=== PATIENT | male | born 1960 | race Caucasian/White ===

== ENCOUNTER 2016-11-15 09:54 | Emergency (ER) | payer MEDICARE ==
[~2016-11-15 09:54] MED LIST: /CELE20CA PO; /WARF25TA OR; IBUPPOW25 PO; LOVA10TA PO; LYRI75CA PO; PERCOCET OR; TYLE325T5 PO
[2016-11-15] MEDS ORDERED: KETOROLAC 30 MG/ML VIAL (J1885) As Ordered ONE (11:08)
[2016-11-15 11:27] LABS: BASO % 0.6 % (0.0-1.0); EOS # 0.1 K/mm3 (0.0-0.50); EOS % 1.3 % (0.0-3.0); LARGE UNSTAINED CELL # 0.1 K/mm3 (0.0-0.4); LARGE UNSTAINED CELL % 1.5 % (0.0-4.0); LYMPH # 2.3 K/mm3 (1.5-4.5); MEAN CORPUSCULAR HEMOGLOBIN 30.7 pg (27.0-33.0); MEAN CORPUSCULAR HGB CONC 34.1 g/dl (32.0-36.5); MEAN CORPUSCULAR VOLUME 90.2 fl (80.0-96.0); MONO # 0.4 K/mm3 (0.0-0.8); MONO % 4.9 % (0.0-5.0); NEUTROPHILS # 4.6 K/mm3 (1.8-7.7); NEUTROPHILS % 60.7 % (36.0-66.0); PLATELET COUNT, AUTOMATED 195 k/mm3 (150-450); WHITE BLOOD COUNT 7.5 K/mm3 (4.0-10.0)
[2016-11-15 11:57] LABS: ALBUMIN/GLOBULIN RATIO 1.03 (1.00-1.93); ALKALINE PHOSPHATASE 65 U/L (45-117); ALT/SGPT 35 U/L (12-78); ANION GAP 5 MEQ/L (8-16); AST/SGOT 16 U/L (15-37); BILIRUBIN,DIRECT 0.1 MG/DL (0.0-0.2); BILIRUBIN,TOTAL 0.4 MG/DL (0.2-1.0); BLOOD UREA NITROGEN 13 MG/DL (7-18); CARBON DIOXIDE LEVEL 30 MEQ/L (21-32); CHLORIDE LEVEL 106 MEQ/L (98-107); CREATININE FOR GFR 1.13 MG/DL (0.70-1.30); GLOMERULAR FILTRATION RATE > 60.0 (>56); GLUCOSE, FASTING 80 MG/DL (70-105); POTASSIUM SERUM 4.3 MEQ/L (3.5-5.1); SODIUM LEVEL 141 MEQ/L (136-145); TOTAL PROTEIN 7.9 GM/DL (6.4-8.2)
--- NOTE | 2016-11-15 12:22 | REP ---
CT STUDY OF THE ABDOMEN PELVIS WITHOUT IV OR ORAL CONTRAST: Renal stone protocol. HISTORY: Right flank pain. Comparison CT scan is from June 08, 2016. 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 The left hip is replaced. FINDINGS: The lung bases are clear. The liver and the spleen are normal in size homogeneous in texture. Gallbladder and pancreas have a normal appearance. No adrenal lesion is seen on either side. Small and large intestinal bowel loops are normal in the abdomen and pelvis. There is some sigmoid colon diverticulosis. A normal appendix is seen posterior to the cecum. Some vascular calcification is noted. The patient is status post inguinal hernia repair apparently on the left. There is no evidence of hydronephrosis in either kidney. No intrarenal calculus is seen. No ureteral calculus is observed. Seminal vesicles and prostate are unremarkable. No abdominal mass or adenopathy is seen. Normal caliber aorta is noted. No bony destructive lesions seen. IMPRESSION: No urinary tract calculus or hydronephrosis seen. Normal appendix seen. Left colonic diverticulosis without CT evidence of diverticulitis. Status post left inguinal herniorrhaphy and left hip replacement. Signed by Jarrett Bailey MD 11/15/2016 06:35 P
--- NOTE | 2016-11-15 12:57 | EDDOCDS ---
Physician Documentation [facility] Name: Jeremiah Ruby Age: 56 yrs Sex: Male : 1960 Arrival Date: 11/15/2016 Time: 09:54 Bed PR Private MD: Michelle Aranda D Disposition: 11/15/16 12:46 Discharged to Home/Self Care. Impression: Abdominal tenderness - RIGHT FLANK. - Condition is Stable. - Discharge Instructions: Flank Pain, [id number]. - Prescriptions for Robaxin- 750 750 mg Oral Tablet - take 1 tablet by ORAL route every 6 hours As needed; 40 tablet. etodolac 200 mg Oral Capsule - take 1 capsule by ORAL route 3 times per day; 30 capsule. - Medication Reconciliation, Local Pharmacy Hours form. - Follow up: Michelle Aranda; When: Call to arrange an appointment; Reason: Further diagnostic work-up, Recheck today's complaints, Continuance of care. - Problem is new. - Symptoms are unchanged. Historical: - Allergies: no known allergies; - Home Meds: 1. allopurinol 300 mg Oral tab 1 tab once daily - PMHx: edema; Gout; Hernia; neuropathy; - PSHx: Hip Arthroplasty, Left; Hernia repair- Left inguinal; cyst removal neck; hydrocele repair; - Social history: Smoking status: Patient uses tobacco products, heavy tobacco smoker. No barriers to communication noted, The patient speaks fluent Greenlandic, Speaks appropriately for age. - Family history: Not pertinent. - : The pt / caregiver states he / she is not on anticoagulants. Home medication list is obtained from the patient. - Exposure Risk Screening:: None identified. Vital Signs: 11/15 09:56 BP 155 / 84; Pulse 60; Resp 18; Temp 96.6; Pulse Ox 99% ; Weight 87.09 kg / 192 lbs; elp Height 5 ft. 9 in. (175.26 cm); Pain 8/10; 12:54 BP 127 / 67; Pulse 56; Resp 18; Temp 97.1; Pulse Ox 98% on R/A; Pain 8/10; ttb 09:56 Body Mass Index 28.35 (87.09 kg, 175.26 cm) elp MDM: 11:05 ketorolac 30 mg IM once ordered. btw 11:05 Basic Metabolic Profile Ordered. EDMS 11:05 CBC with Diff Ordered. EDMS 11:05 Liver Profile Ordered. EDMS 11:05 Urinalysis Ordered. EDMS 11:05 Urine Culture Ordered. EDMS 11:06 CT ABD & PELVIS: No Contrast Ordered. EDMS 11:06 NOTHING BY MOUTH+DIET ordered. EDMS 11:07 Financial registration complete. lg 11:08 [facility] Payment Agreement was scanned into [employer] and attached to record. lg 12:03 Basic Metabolic Profile Reviewed. btw 12:03 CBC with Diff Reviewed. btw 12:03 Liver Profile Reviewed. btw 12:03 Urinalysis Reviewed. btw Administered Medications: 11:10 Drug: ketorolac 30 mg [ketorolac 30 mg/mL (1 mL) injection solution (1 mL)] Route: IM; mcp Site: left deltoid; 12:56 Follow up: Response: No Adverse Reaction; No significant change.; Pain is decreased ttb Signatures: Dispatcher [employer] EDChristo Youssef Reg Reg lg Joby Ordaz RN RN mlb1 Ricky Jefferson PA PA btw Rosanna Mark RN RN ttb Holly Muhammad RN [facility] The chart was reviewed and I authenticate all verbal orders and agree with the evaluation and treatment provided.Attachments: 11:08 [facility] Payment Agreement lg MTDD
--- NOTE | 2016-11-15 12:57 | EDDOCDS ---
Nurse's Notes [facility] Name: Jeremiah Ruby Age: 56 yrs Sex: Male : 1960 Arrival Date: 11/15/2016 Time: 09:54 Bed PR Private MD: Michelle Aranda D Diagnosis: Abdominal tenderness-RIGHT FLANK Presentation: 11/15 10:00 Presenting complaint: Patient states: Right flank pain began 12 days ago. Acute mlb1 neurological deficits are not present. Mechanism of Injury: No Mechanism of Injury. Adult Sepsis Screening: The patient does not have new or worsening altered mentation. Patient's respiratory rate is less than 22. Systolic blood pressure is greater than 100. Patient has a qSOFA score of 0- Negative Sepsis Screen. Suicide/Homicide risk assessment- the patient denies having any suicidal and/or homicidal ideations and does not present with any other emotional, behavioral or mental health complaints. 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 Transition of care: patient was not received from another setting of care. 10:00 Acuity: JUAN Level 3 mlb1 10:00 Method Of Arrival: Walkin/Carried/Asstd mlb1 Triage Assessment: 10:01 General: Appears uncomfortable, Behavior is appropriate for age, cooperative. Pain: mlb1 Location: right flank Pain currently is 9 out of 10 on a pain scale. HIV screening NA for this visit Offered previously. Historical: - Allergies: no known allergies; - Home Meds: 1. allopurinol 300 mg Oral tab 1 tab once daily - PMHx: edema; Gout; Hernia; neuropathy; - PSHx: Hip Arthroplasty, Left; Hernia repair- Left inguinal; cyst removal neck; hydrocele repair; - Social history: Smoking status: Patient uses tobacco products, heavy tobacco smoker. No barriers to communication noted, The patient speaks fluent [place] Islander, Speaks appropriately for age. - Family history: Not pertinent. - : The pt / caregiver states he / she is not on anticoagulants. Home medication list is obtained from the patient. - Exposure Risk Screening:: None identified. Screenin:54 Screening information is obtained from the patient. Fall risk: No risks identified. ttb Assistance ADL's: requires no assistance with activities of daily living. Abuse/DV Screen: The patient / caregiver reports he/she is: not in a situation that causes fear, pain or injury. Nutritional screening: No deficits noted. Advance Directives: Currently, there is no health care proxy. home support is adequate. Assessment: 12:54 General: Appears in no apparent distress, well nourished, well groomed, Behavior is ttb appropriate for age, cooperative, pleasant. Pain: Location: right flank Pain currently is 8 out of 10 on a pain scale. Neurological: Level of Consciousness is awake, alert. Cardiovascular: Chest pain is denied. Respiratory: No deficits noted. GI: Denies nausea, vomiting. Derm: Skin is normal. Musculoskeletal: Range of motion intact in all extremities. Injury Description: No known injury. Vital Signs: 09:56 BP 155 / 84; Pulse 60; Resp 18; Temp 96.6; Pulse Ox 99% ; Weight 87.09 kg; Height 5 ft. elp 9 in. (175.26 cm); Pain 8/10; 12:54 BP 127 / 67; Pulse 56; Resp 18; Temp 97.1; Pulse Ox 98% on R/A; Pain 8/10; ttb 09:56 Body Mass Index 28.35 (87.09 kg, 175.26 cm) el Vitals: 09:56 Log In Time: November 15, 2016 at 09:54. [facility] ED Course: 09:55 Patient visited by Arina Hodgson PCA. elp 09:55 Patient moved to Waiting elp 09:56 Michelle Aranda is Private Physician. elp 09:56 Patient visited by Arina Hodgson PCA. elp 09:56 Patient moved to Pre RCE elp 10:00 Patient visited by Joby Ordaz, RN. mlb1 10:00 Triage Initiated mlb1 10:02 Patient visited by Joby Ordaz, JEREMIAS. mlb1 10:36 Patient moved to Triage 2 kc3 10:56 [facility]. btw 10:56 Lashaun Monte MD is Attending Physician. btw 10:56 Patient visited by Ricky Jefferson PA. btw 11:08 [facility] Payment Agreement was scanned into [employer] and attached to record. lg 11:15 Patient moved to TR3 mcp 11:17 Basic Metabolic Profile Sent. cmb 11:17 CBC with Diff Sent. cmb 11:17 Liver Profile Sent. cmb 11:17 Urinalysis Sent. cmb 11:17 Urine Culture Sent. cmb 12:19 Patient moved to ttb 12:43 CT ABD & PELVIS: No Contrast Returned. EDMS 12:45 Michelle Aranda is Referral Physician. btw 12:54 The patient / caregiver is instructed regarding the plan of care and ED course. Patient ttb has correct armband on for positive identification. 12:54 No IV's were initiated during this patient's visit. No procedures done that require ttb assistance. Labs drawn. (by ED staff). Urine collected. Clean catch specimen. Administered Medications: 11:10 Drug: ketorolac 30 mg [ketorolac 30 mg/mL (1 mL) injection solution (1 mL)] Route: IM; mcp Site: left deltoid; 12:56 Follow up: Response: No Adverse Reaction; No significant change.; Pain is decreased ttb Order Results: Lab Order: Basic Metabolic Profile; SPEC'M 11/15/16 11:13 Test: GLUCOSE, FASTING; Value: 80; Range: 70-105; Units: MG/DL; Status: F Test: BLOOD UREA NITROGEN; Value: 13; Range: 7-18; Units: MG/DL; Status: F Test: CREATININE FOR GFR; Value: 1.13; Range: 0.70-1.30; Units: MG/DL; Status: F Test: GLOMERULAR FILTRATION RATE; Value: > 60.0; Range: >56; Status: F Test: SODIUM LEVEL; Value: 141; Range: 136-145; Units: MEQ/L; Status: F Test: POTASSIUM SERUM; Value: 4.3; Range: 3.5-5.1; Units: MEQ/L; Status: F Test: CHLORIDE LEVEL; Value: 106; Range: 98-107; Units: MEQ/L; Status: F Test: CARBON DIOXIDE LEVEL; Value: 30; Range: 21-32; Units: MEQ/L; Status: F Test: ANION GAP; Value: 5; Range: 8-16; Abnormal: Below low normal; Units: MEQ/L; Status: F Test: CALCIUM LEVEL; Value: 9.0; Range: 8.5-10.1; Units: MG/DL; Status: F Test Note: ; Units are mL/min/1.73 m2 Chronic Kidney Disease Staging per NKF: Stage I & II GFR >=60 Normal to Mildly Decreased Stage III GFR 30-59 Moderately Decreased Stage IV GFR 15-29 Severely Decreased Stage V GFR <15 Very Little GFR Left ESRD GFR <15 on CUSTOMER ACCOUNT SPECIALIST Lab Order: CBC with Diff; SPEC'M 11/15/16 11:13 Test: WHITE BLOOD COUNT; Value: 7.5; Range: 4.0-10.0; Units: K/mm3; Status: F Test: RED BLOOD COUNT; Value: 5.10; Range: 4.30-6.10; Units: M/mm3; Status: F Test: HEMOGLOBIN; Value: 15.7; Range: 14.0-18.0; Units: g/dl; Status: F Test: HEMATOCRIT; Value: 46.1; Range: 42.0-52.0; Units: %; Status: F Test: MEAN CORPUSCULAR VOLUME; Value: 90.2; Range: 80.0-96.0; Units: fl; Status: F Test: MEAN CORPUSCULAR HEMOGLOBIN; Value: 30.7; Range: 27.0-33.0; Units: pg; Status: F Test: MEAN CORPUSCULAR HGB CONC; Value: 34.1; Range: 32.0-36.5; Units: g/dl; Status: F Test: RED CELL DISTRIBUTION WIDTH; Value: 13.0; Range: 11.5-14.5; Units: %; Status: F Test: PLATELET COUNT, AUTOMATED; Value: 195; Range: 150-450; Units: k/mm3; Status: F Test: NEUTROPHILS %; Value: 60.7; Range: 36.0-66.0; Units: %; Status: F Test: LYMPH %; Value: 31.0; Range: 24.0-44.0; Units: %; Status: F Test: MONO %; Value: 4.9; Range: 0.0-5.0; Units: %; Status: F Test: EOS %; Value: 1.3; Range: 0.0-3.0; Units: %; Status: F Test: BASO %; Value: 0.6; Range: 0.0-1.0; Units: %; Status: F Test: LARGE UNSTAINED CELL %; Value: 1.5; Range: 0.0-4.0; Units: %; Status: F Test: NEUTROPHILS #; Value: 4.6; Range: 1.8-7.7; Units: K/mm3; Status: F Test: LYMPH #; Value: 2.3; Range: 1.5-4.5; Units: K/mm3; Status: F Test: MONO #; Value: 0.4; Range: 0.0-0.8; Units: K/mm3; Status: F Test: EOS #; Value: 0.1; Range: 0.0-0.50; Units: K/mm3; Status: F Test: BASO #; Value: 0.0; Range: 0.0-0.2; Units: K/mm3; Status: F Test: LARGE UNSTAINED CELL #; Value: 0.1; Range: 0.0-0.4; Units: K/mm3; Status: F Lab Order: Liver Profile; SPEC'M 11/15/16 11:13 Test: AST/SGOT; Value: 16; Range: 15-37; Units: U/L; Status: F Test: ALT/SGPT; Value: 35; Range: 12-78; Units: U/L; Status: F Test: ALKALINE PHOSPHATASE; Value: 65; Range: 45-117; Units: U/L; Status: F Test: BILIRUBIN,TOTAL; Value: 0.4; Range: 0.2-1.0; Units: MG/DL; Status: F Test: BILIRUBIN,DIRECT; Value: 0.1; Range: 0.0-0.2; Units: MG/DL; Status: F Test: TOTAL PROTEIN; Value: 7.9; Range: 6.4-8.2; Units: GM/DL; Status: F Test: ALBUMIN; Value: 4.0; Range: 3.2-5.2; Units: GM/DL; Status: F Test: ALBUMIN/GLOBULIN RATIO; Value: 1.03; Range: 1.00-1.93; Status: F Lab Order: Urinalysis; SPEC'M 11/15/16 11:13 Test: APPEARANCE, URINE; Value: CLEAR; Range: CLEAR; Status: F Test: COLOR, URINE; Value: STRAW; Range: YELLOW; Status: F Test: PH,URINE; Value: 5.0; Range: 5.0-9.0; Units: UNITS; Status: F Test: SPECIFIC GRAVITY URINE AUTO; Value: 1.004; Range: 1.002-1.035; Status: F Test: PROTEIN, URINE AUTO; Value: NEGATIVE; Range: NEGATIVE; Units: mg/dL; Status: F Test: GLUCOSE, URINE (UA) AUTO; Value: NEGATIVE; Range: NEGATIVE; Units: mg/dL; Status: F Test: KETONE, URINE AUTO; Value: NEGATIVE; Range: NEGATIVE; Units: mg/dL; Status: F Test: UROBILINOGEN, URINE AUTO; Value: 0.2; Range: 0.0-2.0; Units: mg/dL; Status: F Test: BILIRUBIN, URINE AUTO; Value: NEGATIVE; Range: NEGATIVE; Status: F Test: NITRITE, URINE AUTO; Value: NEGATIVE; Range: NEGATIVE; Status: F Test: LEUKOCYTE ESTERASE, URINE AUTO; Value: NEGATIVE; Range: NEGATIVE; Status: F Test: BLOOD, URINE BLOOD; Value: NEGATIVE; Range: NEGATIVE; Status: F Test: WBC, URINE AUTO; Value: 0; Range: 0-3; Units: /HPF; Status: F Test: RBC, URINE AUTO; Value: 0; Range: 0-3; Units: /HPF; Status: F Test: BACTERIA, URINE AUTO; Value: NEGATIVE; Range: NEGATIVE; Status: F Test: SQUAMOUS EPITHELIAL CELL UR AU; Value: 0; Range: 0-6; Units: /HPF; Status: F Test: HYALINE CAST, URINE AUTO; Value: 0; Range: 0-1; Units: /LPF; Status: F Radiology Order: CT ABD & PELVIS: No Contrast Test: CT ABD & PELVIS: No Contrast REASON FOR EXAMINATION: RIGHT flank pain; CT STUDY OF THE ABDOMEN PELVIS WITHOUT IV OR ORAL CONTRAST: Renal stone; protocol.; ; HISTORY: Right flank pain.; ; Comparison CT scan is from June 08, 2016.; ; FINDINGS: Preliminary civil service clerk radiograph demonstrates an unremarkable bowel gas; pattern. The left hip is replaced.; ; FINDINGS: The lung bases are clear. The liver and the spleen are normal in size; homogeneous in texture. Gallbladder and pancreas have a normal appearance. No; adrenal lesion is seen on either side. Small and large intestinal bowel loops; are normal in the abdomen and pelvis. There is some sigmoid colon; diverticulosis. A normal appendix is seen posterior to the cecum. Some vascular; calcification is noted. The patient is status post inguinal hernia repair; apparently on the left.; ; There is no evidence of hydronephrosis in either kidney. No intrarenal calculus; is seen. No ureteral calculus is observed. Seminal vesicles and prostate are; unremarkable. No abdominal mass or adenopathy is seen. Normal caliber aorta is; noted. No bony destructive lesions seen.; ; IMPRESSION:; No urinary tract calculus or hydronephrosis seen. Normal appendix seen. Left; colonic diverticulosis without CT evidence of diverticulitis. Status post left; inguinal herniorrhaphy and left hip replacement.; ; ; ; Unreviewed; Outcome: 12:46 Discharge ordered by Provider. btw 12:54 Discharge Assessment: Patient awake, alert and oriented x 3. No cognitive and/or ttb functional deficits noted. Patient verbalized understanding of disposition instructions. Patient awake and alert. patient administered narcotics - no. The following High Risk Discharge criteria are identified: None. Discharged to home ambulatory. Condition: good Condition: stable Condition: improved. Discharge instructions given to patient, Instructed on discharge instructions, follow up and referral plans. medication usage, Demonstrated understanding of instructions, medications, no heavy lifting, strenuous exercise Pt was receptive of discharge instructions/ teaching. Prescriptions given X 2. CT Study completed. Property :Personal belongings accompany Pt. 12:56 Patient left the ED. ttb Signatures: Dispatcher [employer] EDMS Holly Muhammad RN RN Christo Gardner, Raffy Reg Joby Villagomez RN RN mlb1 Ricky Jefferson PA PA btw Krysten Woodson cmRosanna Villavicencio RN RN ttb Arina Hodgson, SALES DESIGNER SALES DESIGNER Lizy Fernandez,RN RN kc3 MTDD
--- NOTE | 2016-11-17 13:58 | EDDOCDS ---
Physician Documentation [facility] Name: Jeremiah Ruby Age: 56 yrs Sex: Male : 1960 Arrival Date: 11/15/2016 Time: 09:54 Bed PR Private MD: Michelle Aranda D Disposition: 11/15/16 12:46 Discharged to Home/Self Care. Impression: Abdominal tenderness - RIGHT FLANK. - Condition is Stable. - Discharge Instructions: Flank Pain, [id number]. - Prescriptions for Robaxin- 750 750 mg Oral Tablet - take 1 tablet by ORAL route every 6 hours As needed; 40 tablet. etodolac 200 mg Oral Capsule - take 1 capsule by ORAL route 3 times per day; 30 capsule. - Medication Reconciliation, Local Pharmacy Hours form. - Follow up: Michelle Aranda; When: Call to arrange an appointment; Reason: Further diagnostic work-up, Recheck today's complaints, Continuance of care. - Problem is new. - Symptoms are unchanged. Historical: - Allergies: no known allergies; - Home Meds: 1. allopurinol 300 mg Oral tab 1 tab once daily - PMHx: edema; Gout; Hernia; neuropathy; - PSHx: Hip Arthroplasty, Left; Hernia repair- Left inguinal; cyst removal neck; hydrocele repair; - Social history: Smoking status: Patient uses tobacco products, heavy tobacco smoker. No barriers to communication noted, The patient speaks fluent [place], Speaks appropriately for age. - Family history: Not pertinent. - : The pt / caregiver states he / she is not on anticoagulants. Home medication list is obtained from the patient. - Exposure Risk Screening:: None identified. Vital Signs: 11/15 09:56 BP 155 / 84; Pulse 60; Resp 18; Temp 96.6; Pulse Ox 99% ; Weight 87.09 kg / 192 lbs; elp Height 5 ft. 9 in. (175.26 cm); Pain 8/10; 12:54 BP 127 / 67; Pulse 56; Resp 18; Temp 97.1; Pulse Ox 98% on R/A; Pain 8/10; ttb 09:56 Body Mass Index 28.35 (87.09 kg, 175.26 cm) elp MDM: 11:05 ketorolac 30 mg IM once ordered. btw 11:05 Basic Metabolic Profile Ordered. EDMS 11:05 CBC with Diff Ordered. EDMS 11:05 Liver Profile Ordered. EDMS 11:05 Urinalysis Ordered. EDMS 11:05 Urine Culture Ordered. EDMS 11:06 CT ABD & PELVIS: No Contrast Ordered. EDMS 11:06 NOTHING BY MOUTH+DIET ordered. EDMS 11:07 Financial registration complete. lg 11:08 [facility] Payment Agreement was scanned into [employer] and attached to record. lg 12:03 Basic Metabolic Profile Reviewed. btw 12:03 CBC with Diff Reviewed. btw 12:03 Liver Profile Reviewed. btw 12:03 Urinalysis Reviewed. btw 14:07 T-Sheet-- Draft Copy was scanned into [employer] and attached to record. gb Administered Medications: 11:10 Drug: ketorolac 30 mg [ketorolac 30 mg/mL (1 mL) injection solution (1 mL)] Route: IM; mcp Site: left deltoid; 12:56 Follow up: Response: No Adverse Reaction; No significant change.; Pain is decreased ttb Signatures: Dispatcher [employer] EDMS Alessandra Ryan, Reg Reg gb Christo Rg, Reg Reg lg Joby Ordaz RN RN mlb1 Ricky Jefferson PA PA btw Rosanna Mark RN RN ttb Holly uMhammad RN [facility] The chart was reviewed and I authenticate all verbal orders and agree with the evaluation and treatment provided.Attachments: 11:08 [facility] Payment Agreement lg 14:07 T-Sheet-- Draft Copy gb Chart Complete MTDD
--- NOTE | 2016-11-17 13:58 | EDDOCDS ---
Physician Documentation [facility] Name: Jeremiah Ruby Age: 56 yrs Sex: Male : 1960 Arrival Date: 11/15/2016 Time: 09:54 Bed PR Private MD: Michelle Aranda D Disposition: 11/15/16 12:46 Discharged to Home/Self Care. Impression: Abdominal tenderness - RIGHT FLANK. - Condition is Stable. - Discharge Instructions: Flank Pain, [id number]. - Prescriptions for Robaxin- 750 750 mg Oral Tablet - take 1 tablet by ORAL route every 6 hours As needed; 40 tablet. etodolac 200 mg Oral Capsule - take 1 capsule by ORAL route 3 times per day; 30 capsule. - Medication Reconciliation, Local Pharmacy Hours form. - Follow up: Michelle Aranda; When: Call to arrange an appointment; Reason: Further diagnostic work-up, Recheck today's complaints, Continuance of care. - Problem is new. - Symptoms are unchanged. Historical: - Allergies: no known allergies; - Home Meds: 1. allopurinol 300 mg Oral tab 1 tab once daily - PMHx: edema; Gout; Hernia; neuropathy; - PSHx: Hip Arthroplasty, Left; Hernia repair- Left inguinal; cyst removal neck; hydrocele repair; - Social history: Smoking status: Patient uses tobacco products, heavy tobacco smoker. No barriers to communication noted, The patient speaks fluent Arabic, Speaks appropriately for age. - Family history: Not pertinent. - : The pt / caregiver states he / she is not on anticoagulants. Home medication list is obtained from the patient. - Exposure Risk Screening:: None identified. Vital Signs: 11/15 09:56 BP 155 / 84; Pulse 60; Resp 18; Temp 96.6; Pulse Ox 99% ; Weight 87.09 kg / 192 lbs; elp Height 5 ft. 9 in. (175.26 cm); Pain 8/10; 12:54 BP 127 / 67; Pulse 56; Resp 18; Temp 97.1; Pulse Ox 98% on R/A; Pain 8/10; ttb 09:56 Body Mass Index 28.35 (87.09 kg, 175.26 cm) elp MDM: 11:05 ketorolac 30 mg IM once ordered. btw 11:05 Basic Metabolic Profile Ordered. EDMS 11:05 CBC with Diff Ordered. EDMS 11:05 Liver Profile Ordered. EDMS 11:05 Urinalysis Ordered. EDMS 11:05 Urine Culture Ordered. EDMS 11:06 CT ABD & PELVIS: No Contrast Ordered. EDMS 11:06 NOTHING BY MOUTH+DIET ordered. EDMS 11:07 Financial registration complete. lg 11:08 [facility] Payment Agreement was scanned into [employer] and attached to record. lg 12:03 Basic Metabolic Profile Reviewed. btw 12:03 CBC with Diff Reviewed. btw 12:03 Liver Profile Reviewed. btw 12:03 Urinalysis Reviewed. btw 14:07 T-Sheet-- Draft Copy was scanned into [employer] and attached to record. gb Administered Medications: 11:10 Drug: ketorolac 30 mg [ketorolac 30 mg/mL (1 mL) injection solution (1 mL)] Route: IM; mcp Site: left deltoid; 12:56 Follow up: Response: No Adverse Reaction; No significant change.; Pain is decreased ttb Signatures: Dispatcher [employer] EDMS Alessandra Ryan, Reg Reg gb Christo Rg, Reg Reg lg Joby Ordaz RN RN mlb1 Ricky Jefferson PA PA btw Rosanna Mark RN RN ttb Holly Muhammad RN [facility] The chart was reviewed and I authenticate all verbal orders and agree with the evaluation and treatment provided.Attachments: 11:08 [facility] Payment Agreement lg 14:07 T-Sheet-- Draft Copy gb Chart Complete MTDD
--- NOTE | 2016-11-17 13:58 | EDDOCDS ---
Nurse's Notes [facility] Name: Jeremiah Ruby Age: 56 yrs Sex: Male : 1960 Arrival Date: 11/15/2016 Time: 09:54 Bed PR Private MD: Michelle Aranda D Diagnosis: Abdominal tenderness-RIGHT FLANK Presentation: 11/15 10:00 Presenting complaint: Patient states: Right flank pain began 12 days ago. Acute mlb1 neurological deficits are not present. Mechanism of Injury: No Mechanism of Injury. Adult Sepsis Screening: The patient does not have new or worsening altered mentation. Patient's respiratory rate is less than 22. Systolic blood pressure is greater than 100. Patient has a qSOFA score of 0- Negative Sepsis Screen. Suicide/Homicide risk assessment- the patient denies having any suicidal and/or homicidal ideations and does not present with any other emotional, behavioral or mental health complaints. Status: Patient is not a donor services technician or dependent. Transition of care: patient was not received from another setting of care. 10:00 Acuity: JUAN Level 3 mlb1 10:00 Method Of Arrival: Walkin/Carried/Asstd mlb1 Triage Assessment: 10:01 General: Appears uncomfortable, Behavior is appropriate for age, cooperative. Pain: mlb1 Location: right flank Pain currently is 9 out of 10 on a pain scale. HIV screening NA for this visit Offered previously. Historical: - Allergies: no known allergies; - Home Meds: 1. allopurinol 300 mg Oral tab 1 tab once daily - PMHx: edema; Gout; Hernia; neuropathy; - PSHx: Hip Arthroplasty, Left; Hernia repair- Left inguinal; cyst removal neck; hydrocele repair; - Social history: Smoking status: Patient uses tobacco products, heavy tobacco smoker. No barriers to communication noted, The patient speaks fluent Eritrean, Speaks appropriately for age. - Family history: Not pertinent. - : The pt / caregiver states he / she is not on anticoagulants. Home medication list is obtained from the patient. - Exposure Risk Screening:: None identified. Screenin:54 Screening information is obtained from the patient. Fall risk: No risks identified. ttb Assistance ADL's: requires no assistance with activities of daily living. Abuse/DV Screen: The patient / caregiver reports he/she is: not in a situation that causes fear, pain or injury. Nutritional screening: No deficits noted. Advance Directives: Currently, there is no health care proxy. home support is adequate. Assessment: 12:54 General: Appears in no apparent distress, well nourished, well groomed, Behavior is ttb appropriate for age, cooperative, pleasant. Pain: Location: right flank Pain currently is 8 out of 10 on a pain scale. Neurological: Level of Consciousness is awake, alert. Cardiovascular: Chest pain is denied. Respiratory: No deficits noted. GI: Denies nausea, vomiting. Derm: Skin is normal. Musculoskeletal: Range of motion intact in all extremities. Injury Description: No known injury. Vital Signs: 09:56 BP 155 / 84; Pulse 60; Resp 18; Temp 96.6; Pulse Ox 99% ; Weight 87.09 kg; Height 5 ft. elp 9 in. (175.26 cm); Pain 8/10; 12:54 BP 127 / 67; Pulse 56; Resp 18; Temp 97.1; Pulse Ox 98% on R/A; Pain 8/10; ttb 09:56 Body Mass Index 28.35 (87.09 kg, 175.26 cm) el Vitals: 09:56 Log In Time: November 15, 2016 at 09:54. [facility] ED Course: 09:55 Patient visited by Arina Hodgson PCA. elp 09:55 Patient moved to Waiting elp 09:56 Michelle Aranda is Private Physician. elp 09:56 Patient visited by Arina Hodgson PCA. elp 09:56 Patient moved to Pre RCE elp 10:00 Patient visited by Joby Ordaz, RN. mlb1 10:00 Triage Initiated mlb1 10:02 Patient visited by Joby Ordaz, JEREMIAS. mlb1 10:36 Patient moved to Triage 2 kc3 10:56 Ricky Jefferson PA is [facility]. btw 10:56 Lashaun Monte MD is Attending Physician. btw 10:56 Patient visited by Ricky Jefferson PA. btw 11:08 [facility] Payment Agreement was scanned into [employer]Tw[employer] and attached to record. lg 11:15 Patient moved to TR3 mcp 11:17 Basic Metabolic Profile Sent. cmb 11:17 CBC with Diff Sent. cmb 11:17 Liver Profile Sent. cmb 11:17 Urinalysis Sent. cmb 11:17 Urine Culture Sent. cmb 12:19 Patient moved to ttb 12:43 CT ABD & PELVIS: No Contrast Returned. EDMS 12:45 Michelle Aranda is Referral Physician. btw 12:54 The patient / caregiver is instructed regarding the plan of care and ED course. Patient ttb has correct armband on for positive identification. 12:54 No IV's were initiated during this patient's visit. No procedures done that require ttb assistance. Labs drawn. (by ED staff). Urine collected. Clean catch specimen. 14:07 T-Sheet-- Draft Copy was scanned into [employer]Tw[employer] and attached to record. gb Administered Medications: 11:10 Drug: ketorolac 30 mg [ketorolac 30 mg/mL (1 mL) injection solution (1 mL)] Route: IM; mcp Site: left deltoid; 12:56 Follow up: Response: No Adverse Reaction; No significant change.; Pain is decreased ttb Order Results: Lab Order: Basic Metabolic Profile; SPEC'M 11/15/16 11:13 Test: GLUCOSE, FASTING; Value: 80; Range: 70-105; Units: MG/DL; Status: F Test: BLOOD UREA NITROGEN; Value: 13; Range: 7-18; Units: MG/DL; Status: F Test: CREATININE FOR GFR; Value: 1.13; Range: 0.70-1.30; Units: MG/DL; Status: F Test: GLOMERULAR FILTRATION RATE; Value: > 60.0; Range: >56; Status: F Test: SODIUM LEVEL; Value: 141; Range: 136-145; Units: MEQ/L; Status: F Test: POTASSIUM SERUM; Value: 4.3; Range: 3.5-5.1; Units: MEQ/L; Status: F Test: CHLORIDE LEVEL; Value: 106; Range: 98-107; Units: MEQ/L; Status: F Test: CARBON DIOXIDE LEVEL; Value: 30; Range: 21-32; Units: MEQ/L; Status: F Test: ANION GAP; Value: 5; Range: 8-16; Abnormal: Below low normal; Units: MEQ/L; Status: F Test: CALCIUM LEVEL; Value: 9.0; Range: 8.5-10.1; Units: MG/DL; Status: F Test Note: ; Units are mL/min/1.73 m2 Chronic Kidney Disease Staging per NKF: Stage I & II GFR >=60 Normal to Mildly Decreased Stage III GFR 30-59 Moderately Decreased Stage IV GFR 15-29 Severely Decreased Stage V GFR <15 Very Little GFR Left ESRD GFR <15 on HOME INSPECTOR Lab Order: CBC with Diff; SPEC'M 11/15/16 11:13 Test: WHITE BLOOD COUNT; Value: 7.5; Range: 4.0-10.0; Units: K/mm3; Status: F Test: RED BLOOD COUNT; Value: 5.10; Range: 4.30-6.10; Units: M/mm3; Status: F Test: HEMOGLOBIN; Value: 15.7; Range: 14.0-18.0; Units: g/dl; Status: F Test: HEMATOCRIT; Value: 46.1; Range: 42.0-52.0; Units: %; Status: F Test: MEAN CORPUSCULAR VOLUME; Value: 90.2; Range: 80.0-96.0; Units: fl; Status: F Test: MEAN CORPUSCULAR HEMOGLOBIN; Value: 30.7; Range: 27.0-33.0; Units: pg; Status: F Test: MEAN CORPUSCULAR HGB CONC; Value: 34.1; Range: 32.0-36.5; Units: g/dl; Status: F Test: RED CELL DISTRIBUTION WIDTH; Value: 13.0; Range: 11.5-14.5; Units: %; Status: F Test: PLATELET COUNT, AUTOMATED; Value: 195; Range: 150-450; Units: k/mm3; Status: F Test: NEUTROPHILS %; Value: 60.7; Range: 36.0-66.0; Units: %; Status: F Test: LYMPH %; Value: 31.0; Range: 24.0-44.0; Units: %; Status: F Test: MONO %; Value: 4.9; Range: 0.0-5.0; Units: %; Status: F Test: EOS %; Value: 1.3; Range: 0.0-3.0; Units: %; Status: F Test: BASO %; Value: 0.6; Range: 0.0-1.0; Units: %; Status: F Test: LARGE UNSTAINED CELL %; Value: 1.5; Range: 0.0-4.0; Units: %; Status: F Test: NEUTROPHILS #; Value: 4.6; Range: 1.8-7.7; Units: K/mm3; Status: F Test: LYMPH #; Value: 2.3; Range: 1.5-4.5; Units: K/mm3; Status: F Test: MONO #; Value: 0.4; Range: 0.0-0.8; Units: K/mm3; Status: F Test: EOS #; Value: 0.1; Range: 0.0-0.50; Units: K/mm3; Status: F Test: BASO #; Value: 0.0; Range: 0.0-0.2; Units: K/mm3; Status: F Test: LARGE UNSTAINED CELL #; Value: 0.1; Range: 0.0-0.4; Units: K/mm3; Status: F Lab Order: Liver Profile; SPEC'M 11/15/16 11:13 Test: AST/SGOT; Value: 16; Range: 15-37; Units: U/L; Status: F Test: ALT/SGPT; Value: 35; Range: 12-78; Units: U/L; Status: F Test: ALKALINE PHOSPHATASE; Value: 65; Range: 45-117; Units: U/L; Status: F Test: BILIRUBIN,TOTAL; Value: 0.4; Range: 0.2-1.0; Units: MG/DL; Status: F Test: BILIRUBIN,DIRECT; Value: 0.1; Range: 0.0-0.2; Units: MG/DL; Status: F Test: TOTAL PROTEIN; Value: 7.9; Range: 6.4-8.2; Units: GM/DL; Status: F Test: ALBUMIN; Value: 4.0; Range: 3.2-5.2; Units: GM/DL; Status: F Test: ALBUMIN/GLOBULIN RATIO; Value: 1.03; Range: 1.00-1.93; Status: F Lab Order: Urinalysis; SPEC'M 11/15/16 11:13 Test: APPEARANCE, URINE; Value: CLEAR; Range: CLEAR; Status: F Test: COLOR, URINE; Value: STRAW; Range: YELLOW; Status: F Test: PH,URINE; Value: 5.0; Range: 5.0-9.0; Units: UNITS; Status: F Test: SPECIFIC GRAVITY URINE AUTO; Value: 1.004; Range: 1.002-1.035; Status: F Test: PROTEIN, URINE AUTO; Value: NEGATIVE; Range: NEGATIVE; Units: mg/dL; Status: F Test: GLUCOSE, URINE (UA) AUTO; Value: NEGATIVE; Range: NEGATIVE; Units: mg/dL; Status: F Test: KETONE, URINE AUTO; Value: NEGATIVE; Range: NEGATIVE; Units: mg/dL; Status: F Test: UROBILINOGEN, URINE AUTO; Value: 0.2; Range: 0.0-2.0; Units: mg/dL; Status: F Test: BILIRUBIN, URINE AUTO; Value: NEGATIVE; Range: NEGATIVE; Status: F Test: NITRITE, URINE AUTO; Value: NEGATIVE; Range: NEGATIVE; Status: F Test: LEUKOCYTE ESTERASE, URINE AUTO; Value: NEGATIVE; Range: NEGATIVE; Status: F Test: BLOOD, URINE BLOOD; Value: NEGATIVE; Range: NEGATIVE; Status: F Test: WBC, URINE AUTO; Value: 0; Range: 0-3; Units: /HPF; Status: F Test: RBC, URINE AUTO; Value: 0; Range: 0-3; Units: /HPF; Status: F Test: BACTERIA, URINE AUTO; Value: NEGATIVE; Range: NEGATIVE; Status: F Test: SQUAMOUS EPITHELIAL CELL UR AU; Value: 0; Range: 0-6; Units: /HPF; Status: F Test: HYALINE CAST, URINE AUTO; Value: 0; Range: 0-1; Units: /LPF; Status: F Lab Order: Urine Culture; SPEC'M 11/15/16 11:13 Test: URINE CULTURE; Value: <EXTERNAL COMMENT eCWMed> FULL REPORT IN LAB NOTES (eCW and Medent).; Status: F Test: URINE CULTURE; Value: URINE CULTURE RESULT NO GROWTH; Status: F Radiology Order: CT ABD & PELVIS: No Contrast Test: CT ABD & PELVIS: No Contrast REASON FOR EXAMINATION: RIGHT flank pain; CT STUDY OF THE ABDOMEN PELVIS WITHOUT IV OR ORAL CONTRAST: Renal stone; protocol.; ; HISTORY: Right flank pain.; ; Comparison CT scan is from June 08, 2016.; ; FINDINGS: Preliminary quartz miner blasting radiograph demonstrates an unremarkable bowel gas; pattern. The left hip is replaced.; ; FINDINGS: The lung bases are clear. The liver and the spleen are normal in size; homogeneous in texture. Gallbladder and pancreas have a normal appearance. No; adrenal lesion is seen on either side. Small and large intestinal bowel loops; are normal in the abdomen and pelvis. There is some sigmoid colon; diverticulosis. A normal appendix is seen posterior to the cecum. Some vascular; calcification is noted. The patient is status post inguinal hernia repair; apparently on the left.; ; There is no evidence of hydronephrosis in either kidney. No intrarenal calculus; is seen. No ureteral calculus is observed. Seminal vesicles and prostate are; unremarkable. No abdominal mass or adenopathy is seen. Normal caliber aorta is; noted. No bony destructive lesions seen.; ; IMPRESSION: No urinary tract calculus or hydronephrosis seen. Normal appendix; seen. Left colonic diverticulosis without CT evidence of diverticulitis. Status; post left inguinal herniorrhaphy and left hip replacement.; ; ; Signed by; Jarrtet Bailey MD 11/15/2016 06:35 P; Outcome: 12:46 Discharge ordered by Provider. btw 12:54 Discharge Assessment: Patient awake, alert and oriented x 3. No cognitive and/or ttb functional deficits noted. Patient verbalized understanding of disposition instructions. Patient awake and alert. patient administered narcotics - no. The following High Risk Discharge criteria are identified: None. Discharged to home ambulatory. Condition: good Condition: stable Condition: improved. Discharge instructions given to patient, Instructed on discharge instructions, follow up and referral plans. medication usage, Demonstrated understanding of instructions, medications, no heavy lifting, strenuous exercise Pt was receptive of discharge instructions/ teaching. Prescriptions given X 2. CT Study completed. Property :Personal belongings accompany Pt. 12:56 Patient left the ED. ttb Signatures: Dispatcher [employer] EDMS Holly Muhammad RN RN Alessandra Quintanilla, Reg Reg gb Christo Rg, Reg Reg lg Joby Ordaz RN RN mlb1 Ricky Jefferson PA PA btw Krysten Woodson cmRosanna Villavicencio RN RN ttb Arina Hodgson, CARRIER BLOWER CARRIER BLOWER elp Lomas,Lizy,RN RN kc3 Chart Complete MTDD
== END 2016-11-15 12:56 | disposition home or self-care (01) ==
LOC: M ED 09:54
DX: R10.30 Lower abdominal pain, unspecified (principal); R60.9 Edema, unspecified; M10.9 Gout, unspecified; G60.9 Hereditary and idiopathic neuropathy, unspecified; F17.210 Nicotine dependence, cigarettes, uncomplicated; Z79.899 Other long term (current) drug therapy
CPT/HCPCS: 36415; 74176; 80048; 80076; 81001; 85025; 87086; 96372; 99284; J1885

== ENCOUNTER 2017-04-02 08:31 | Emergency (ER) | payer MEDICARE ==
[~2017-04-02] VITALS: Ht 175.3 cm; Wt 88.9 kg
[2017-04-02] MEDS ORDERED: NORCO, ANEXSIA 5/325MG TABLET (HYDROcodone/ACETAMINOPHEN) PO ONE (09:30)
[2017-04-02 10:08] LABS: BASO % 0.2 % (0.0-1.0); EOS # 0.1 K/mm3 (0.0-0.50); EOS % 0.5 % (0.0-3.0); LARGE UNSTAINED CELL # 0.1 K/mm3 (0.0-0.4); LARGE UNSTAINED CELL % 0.7 % (0.0-4.0); LYMPH # 1.9 K/mm3 (1.5-4.5); LYMPH % 14.2 % (24.0-44.0); MEAN CORPUSCULAR HEMOGLOBIN 32.3 pg (27.0-33.0); MEAN CORPUSCULAR HGB CONC 35.9 g/dl (32.0-36.5); MONO # 0.6 K/mm3 (0.0-0.8); MONO % 4.7 % (0.0-5.0); NEUTROPHILS % 79.8 % (36.0-66.0); PLATELET COUNT, AUTOMATED 175 k/mm3 (150-450); RED CELL DISTRIBUTION WIDTH 12.8 % (11.5-14.5); WHITE BLOOD COUNT 12.5 K/mm3 (4.0-10.0)
[2017-04-02 10:17] LABS: ANION GAP 9 MEQ/L (8-16); BLOOD UREA NITROGEN 17 MG/DL (7-18); CALCIUM LEVEL 8.4 MG/DL (8.5-10.1); CARBON DIOXIDE LEVEL 23 MEQ/L (21-32); CHLORIDE LEVEL 104 MEQ/L (98-107); CREATININE FOR GFR 1.08 MG/DL (0.70-1.30); GLOMERULAR FILTRATION RATE > 60.0 (>56); GLUCOSE, FASTING 92 MG/DL (70-105); POTASSIUM SERUM 4.3 MEQ/L (3.5-5.1); SODIUM LEVEL 136 MEQ/L (136-145); URIC ACID 8.7 MG/DL (3.5-7.2)
[2017-04-02 10:39] LABS: ERYTHROCYTE SEDIMENTATION RATE 7 mm/hr (0-20)
[2017-04-02] MEDS ORDERED: INDO50CA PO (10:52)
[2017-04-02] MEDS ORDERED: KEFL500C7 PO (10:52)
[2017-04-02 10:58] VITALS: BP 139/83
== END 2017-04-02 11:00 | disposition home or self-care (01) ==
LOC: M ED 09:34
DX: M25.521 Pain in right elbow (principal); M10.9 Gout, unspecified; M71.9 Bursopathy, unspecified; F17.200 Nicotine dependence, unspecified, uncomplicated

== ENCOUNTER 2017-05-04 19:27 | Emergency (ER) | payer MEDICARE ==
[~2017-05-04] VITALS: Ht 177.8 cm; Wt 89.1 kg
[~2017-05-04 19:27] MED LIST changes: +INDO50CA PO; +KEFL500C17 PO
[2017-05-04] MEDS ORDERED: ALLO15TA (19:38)
[2017-05-04] MEDS ORDERED: KETOROLAC 30 MG/ML VIAL (J1885) IV ONE (20:30)
[2017-05-04] MEDS ORDERED: CLINDAMYCIN 600 MG in APPROPRIATE DILUENT 1 EA IV ONE (20:30)
--- NOTE | 2017-05-04 21:30 | REPUSA ---
CLINICAL HISTORY: Edema. COMMENTS: Real time sonography with duplex doppler of the right lower extremity was performed with attention to the major deep venous structures. Evaluation reveals the right common femoral, superficial femoral and popliteal veins to be completely compressible without intraluminal thrombus. There is normal spontaneous phasic flow and augmentation . The greater saphenous/common femoral vein junction is patent. IMPRESSION: No evidence of DVT in right lower extremity. Thank you for your kind referral of this patient.
[2017-05-04 21:46] LABS: ANION GAP 5 MEQ/L (8-16); BLOOD UREA NITROGEN 13 MG/DL (7-18); CALCIUM LEVEL 8.6 MG/DL (8.5-10.1); CARBON DIOXIDE LEVEL 25 MEQ/L (21-32); CHLORIDE LEVEL 104 MEQ/L (98-107); CREATININE FOR GFR 1.03 MG/DL (0.70-1.30); GLOMERULAR FILTRATION RATE > 60.0 (>56); GLUCOSE, FASTING 91 MG/DL (70-105); POTASSIUM SERUM 3.9 MEQ/L (3.5-5.1); SODIUM LEVEL 134 MEQ/L (136-145)
[2017-05-04 21:47] LABS: BASO % 0.3 % (0.0-1.0); EOS # 0.1 K/mm3 (0.0-0.50); EOS % 0.9 % (0.0-3.0); LARGE UNSTAINED CELL # 0.1 K/mm3 (0.0-0.4); LARGE UNSTAINED CELL % 1.3 % (0.0-4.0); LYMPH # 1.8 K/mm3 (1.5-4.5); LYMPH % 16.9 % (24.0-44.0); MEAN CORPUSCULAR HEMOGLOBIN 31.7 pg (27.0-33.0); MEAN CORPUSCULAR HGB CONC 34.6 g/dl (32.0-36.5); MEAN CORPUSCULAR VOLUME 91.7 fl (80.0-96.0); MONO # 0.6 K/mm3 (0.0-0.8); NEUTROPHILS # 8.2 K/mm3 (1.8-7.7); NEUTROPHILS % 75.5 % (36.0-66.0); PLATELET COUNT, AUTOMATED 233 k/mm3 (150-450); RED CELL DISTRIBUTION WIDTH 12.4 % (11.5-14.5); WHITE BLOOD COUNT 10.9 K/mm3 (4.0-10.0)
[2017-05-04 22:22] LABS: ERYTHROCYTE SEDIMENTATION RATE 38 mm/hr (0-20)
[2017-05-04 22:28] VITALS: BP 115/56
[2017-05-04] MEDS ORDERED: NORCOTAB PO (22:32)
[2017-05-04] MEDS ORDERED: CLEO300C2 PO (22:32)
--- NOTE | 2017-05-05 06:33 | REP ---
RIGHT FOOT, FOUR VIEWS: HISTORY: Pain. COMPARISON: 10/28/2008 There is no acute fracture or dislocation. There is narrowing of the metatarsal phalangeal and interphalangeal joint spaces of the 1st digit with associated osteophyte formation. IMPRESSION: Degenerative change as described above. Signed by Brian Mckeon MD 05/05/2017 07:59 A
== END 2017-05-04 22:45 | disposition home or self-care (01) ==
LOC: M ED 19:27
DX: L03.115 Cellulitis of right lower limb (principal); M10.9 Gout, unspecified; E78.00 Pure hypercholesterolemia, unspecified; R10.13 Epigastric pain; F17.200 Nicotine dependence, unspecified, uncomplicated; Z79.899 Other long term (current) drug therapy
CPT/HCPCS: 73630; 80048; 85025; 85652; 86140; 93971; 96374; 96375; 99283; J1885

== ENCOUNTER → 2020-07-15 | Outpatient (CLI) | payer MEDICARE ==
[~2020-07-15] MED LIST changes: -/CELE20CA PO; -/WARF25TA OR; +ALLO300T2; +CELE1CAP4 PO; +CLEO300C2 PO; +COUM1TAB18 OR; +HYDR-3715 PO; -INDO50CA PO; +INDO50CA91 PO; +OXYC1TAB23 OR; -PERCOCET OR
--- NOTE | 2020-07-21 08:18 | REP ---
RIGHT TIBIA-FIBULA CLINICAL: Right lower extremity pain. TECHNIQUE: AP and lateral views of the right tibia/fibula. FINDINGS: Osseous structures, joint spaces, and surrounding soft tissues are relatively age appropriate. Possible old injury at the lateral malleolus/tip of the fibula requires correlation to exclude the possibility of subtle acute injury. IMPRESSION: Essentially age-related changes. Cannot exclude acute versus old injury at the lateral malleolus/fibular tip. MTDD
--- NOTE | 2020-07-21 08:19 | REP ---
RIGHT ANKLE SERIES CLINICAL: Pain. TECHNIQUE: AP and lateral views of the right ankle. FINDINGS: Lateral swelling is appreciated and there appears to be acute and/or chronic fracture at the tip of the fibula. Ankle mortise intact. IMPRESSION: Lateral swelling with acute versus chronic fracture of the fibular tip. MTDD
== END ==
LOC: M RAD 06:52
PROVIDERS: ATTEND Nurse Practitioner Adult Health
DX: M79.661 Pain in right lower leg (principal); R60.9 Edema, unspecified; M79.89 Other specified soft tissue disorders

== ENCOUNTER → 2020-08-26 | Outpatient (CLI) | payer MEDICARE ==
--- NOTE | 2020-08-26 08:45 | REP ---
INDICATION: PAIN RT LOWER LEG/ANKLE XR 1ST MRI 2ND. COMPARISON: X-ray 07/15/2020 TECHNIQUE: Sagittal T1 and STIR; coronal fat suppressed T2; axial T1, fat-suppressed T1 and T2 FINDINGS: The distal tibia and fibula are without bone bruise or fracture. The mortise joint with symmetric and there is no talar dome osteochondral defect. Subtalar joints are grossly intact. There is fluid anterior and posterior to the ankle joint on sagittal view. There is abnormal signal in distal fibers of the peroneus longus tendon. The tendon is thickened posterior to the distal fibula with some increased internal signal onnd T2 suggesting an intra- tendon split. Peroneus brevis tendon is attenuated inferior and anterior to the distal fibula. The PTT, FDL and FHL tendons are intact. The AT, EDL and EHL tendons were also grossly intact. Achilles tendon shows no abnormal signal or thickening. Calcaneus shows no bone bruise or fracture. The visualized tarsal bones are intact. There is abnormal signal in the anterior talofibular ligament and some thickening suggesting chronic injury. There is strain in the posterior talofibular and calcaneofibular ligaments. Deltoid ligament grossly intact. Some minor degenerative changes at the ankle. IMPRESSION: 1. Peroneus longus tendon intrasubstance tear with thickening of the tendon and some increased intrasubstance signal with some distal tendon signal abnormality as well. Two 2. Peroneus brevis shows mild attenuation and the PT, FDL, FHL and the anterior tendons all intact. No Achilles abnormality. 3. Chronic injuries anterior talofibular ligament with strain also posterior talofibular ligament and calcaneal fibular ligaments. Associated small joint effusion. 4. Achilles tendon intact. No bone bruise or fracture. Some degenerative changes about the ankle. <Electronically signed by Martin Deshpande > 08/26/20 [id number]
--- NOTE | 2020-08-26 09:21 | REP ---
INDICATION: NICOTINE DEPENDENCE XR 1ST MRI 2ND FILE ROOM. COMPARISON: Chest x-ray and CT 05/22/2016 TECHNIQUE: Two views FINDINGS: The lung galvez are well inflated. The CP angles are sharply defined with no effusion, lateral or apical pleural thickening. There is no infiltrate, atelectasis or mass. No pulmonary nodules. Some minor basilar fibrotic changes are again seen. Heart size not grossly enlarged. There is no chamber enlargement. There is no vascular redistribution or pulmonary edema. The aorta is normal for age. Airway is intact. There is no widening of the mediastinum. Bony thorax shows no compression deformity or focal lesion. No free air under the diaphragm. IMPRESSION: No acute cardiopulmonary disease, stable chest. Some minor basilar chronic changes. <Electronically signed by Martin Deshpande > 08/26/20 [id number]
== END ==
LOC: M RAD 07:06
PROVIDERS: ATTEND Nurse Practitioner Adult Health
DX: M79.661 Pain in right lower leg (principal); M25.571 Pain in right ankle and joints of right foot

== ENCOUNTER 2021-01-19 21:14 | Emergency (ER) | payer MEDICARE ==
[~2021-01-19] VITALS: Ht 175.3 cm; Wt 100.0 kg
[2021-01-19 23:10] LABS: BASO % 0.2 % (0.0-1.0); EOS # 0.2 10^3/uL (0.0-0.5); EOS % 1.4 % (0.0-3.0); HEMATOCRIT 41.5 % (42.0-52.0); HEMOGLOBIN 13.7 g/dl (13.5-17.5); LYMPH # 2.4 10^3/uL (1.5-5.0); LYMPH % 21.6 % (24.0-44.0); MEAN CORPUSCULAR VOLUME 93.9 fl (80.0-96.0); MONO # 0.8 10^3/uL (0.0-0.8); MONO % 7.2 % (2.0-8.0); NEUTROPHILS # 7.7 10^3/uL (1.5-8.5); NEUTROPHILS % 69.1 % (36.0-66.0); PLATELET COUNT, AUTOMATED 206 10^3/uL (150-450); RED BLOOD COUNT 4.42 10^6/uL (4.30-6.10); WHITE BLOOD COUNT 11.2 10^3/uL (4.0-10.0)
[2021-01-19 23:31] LABS: ERYTHROCYTE SEDIMENTATION RATE 22 mm/hr (0-20)
[2021-01-19 23:36] LABS: ALBUMIN 3.7 GM/DL (3.2-5.2); ALT/SGPT 25 U/L (12-78); BILIRUBIN,DIRECT < 0.1 MG/DL (0.0-0.2); BILIRUBIN,TOTAL 0.2 MG/DL (0.2-1.0); C REACTIVE PROTEIN QUANTITATIV 1.12 MG/DL (0.00-0.30); TOTAL PROTEIN 7.2 GM/DL (6.4-8.2)
--- NOTE | 2021-01-19 23:36 | REPVR ---
PROCEDURE INFORMATION: Exam: XR Left Knee Exam date and time: 01/19/2021 10:27 PM Age: 60 years old Clinical indication: Other: Swelling; Additional info: Swelling/ ? effusion TECHNIQUE: Imaging protocol: XR Left knee. Views: 4 or more views. COMPARISON: CR Tibia, Fibula lower leg 07/15/2020 7:11 AM FINDINGS: Bones/joints: Osteopenia. Focus of mottled sclerosis in the distal left femoral diaphysis. No fracture. The joint space is adequately well maintained. No fractures. Early degenerative change at the patellofemoral joint. Question of minimal joint effusion. Soft tissues: Normal. IMPRESSION: 1. Area of mottled sclerosis in the distal femoral diaphysis which may reflect residua of bone infarct. 2. Osteopenia. 3. Early degenerative change. 4. Question of minimal joint effusion. 5. Otherwise negative left knee. Electronically signed by: Boogie Holland On 01/19/2021 23:36:14 PM
[2021-01-20] MEDS ORDERED: cefTRIAXone SOD 1 GM in D5W MINI-BAG PLUS 50 ML IV ONE ×2
[2021-01-20] MEDS ORDERED: BACT800T5 PO (01:09)
[2021-01-20 02:15] VITALS: BP 153/75
--- NOTE | 2021-01-21 08:57 | ED PDOC ---
Post-Departure Follow-Up left knee xray faxed to [facility] for fu Liss Sherman MD Jan 21, 2021 08:57
== END 2021-01-20 02:33 | disposition home or self-care (01) ==
LOC: M ED 21:14
DX: L03.116 Cellulitis of left lower limb (principal); M25.462 Effusion, left knee; M85.862 Other specified disorders of bone density and structure, left lower leg; M17.12 Unilateral primary osteoarthritis, left knee; R51.9 Headache, unspecified; E78.5 Hyperlipidemia, unspecified; M54.9 Dorsalgia, unspecified; K30 Functional dyspepsia; F17.200 Nicotine dependence, unspecified, uncomplicated
CPT/HCPCS: 73564; 80047; 80076; 83605; 85025; 85652; 86140; 87040; 96365; 99284; J0696

== ENCOUNTER 2021-04-04 16:47 | Inpatient (IN) | payer MEDICARE ==
[~2021-04-04] VITALS: Ht 175.3 cm; Wt 97.4 kg
[~2021-04-04 16:47] MED LIST changes: +BACT800T5 PO
--- NOTE | 2021-04-04 19:25 | REP ---
INDICATION: Altered Mental Status. COMPARISON: 08/26/2020 TECHNIQUE: Portable FINDINGS: The technique utilized in obtaining the radiograph has magnified the cardiac silhouette and accentuated the interstitial markings. The superior mediastinal structures are midline. The cardiac silhouette is unremarkable in size, shape, and position. The diaphragmatic surfaces of the lungs are regular, and the costophrenic angles are clear. The pulmonary galvez are clear. The imaged osseous structures are intact. IMPRESSION: There is no acute cardiopulmonary disease. <Electronically signed by Sukumar Rios > 04/04/21 [id number]
[2021-04-04 19:38] LABS: BASO % 0.5 % (0.0-1.0); EOS # 0.2 10^3/uL (0.0-0.5); EOS % 2.5 % (0.0-3.0); HEMOGLOBIN 13.6 g/dl (13.5-17.5); LYMPH # 2.7 10^3/uL (1.5-5.0); LYMPH % 35.8 % (24.0-44.0); MEAN CORPUSCULAR HEMOGLOBIN 30.6 pg (27.0-33.0); MEAN CORPUSCULAR HGB CONC 32.4 g/dl (32.0-36.5); MEAN CORPUSCULAR VOLUME 94.4 fl (80.0-96.0); MONO # 0.5 10^3/uL (0.0-0.8); MONO % 7.2 % (2.0-8.0); NEUTROPHILS % 53.6 % (36.0-66.0); PLATELET COUNT, AUTOMATED 194 10^3/uL (150-450); RED BLOOD COUNT 4.45 10^6/uL (4.30-6.10); WHITE BLOOD COUNT 7.5 10^3/uL (4.0-10.0)
[2021-04-04 19:59] LABS: AMPHETAMINES LEVEL URINE NEGATIVE (NEGATIVE); BARBITURATES URINE NEGATIVE (NEGATIVE); BENZODIAZEPINES URINE NEGATIVE (NEGATIVE); CANNABINOIDS URINE NEGATIVE (NEGATIVE); COCAINE METABOLITE URINE NEGATIVE (NEGATIVE); METHADONE URINE NEGATIVE (NEGATIVE); OPIATES URINE NEGATIVE (NEGATIVE); PHENCYCLIDINE URINE NEGATIVE (NEGATIVE)
[2021-04-04 20:09] LABS: ACETAMINOPHEN LEVEL < 2.0 UG/ML (10.0-30.0); ALBUMIN 3.6 GM/DL (3.2-5.2); ALT/SGPT 26 U/L (12-78); BILIRUBIN,DIRECT < 0.1 MG/DL (0.0-0.2); BILIRUBIN,TOTAL 0.2 MG/DL (0.2-1.0); BLOOD UREA NITROGEN 19 MG/DL (7-18); CALCIUM LEVEL 8.7 MG/DL (8.5-10.1); CARBON DIOXIDE LEVEL 27 MEQ/L (21-32); CHLORIDE LEVEL 108 MEQ/L (98-107); CK-MB VALUE MASS 1.1 NG/ML (<3.6); CPK CREATINE PHOSPHOKINASE 135 U/L (39-308); CREATININE FOR GFR 0.99 MG/DL (0.70-1.30); ETHYL ALCOHOL (ETHANOL) 0.003 % (0.000-0.010); GLOMERULAR FILTRATION RATE > 60.0 (>56); GLUCOSE, FASTING 92 MG/DL (70-100); MB/CK RELATIVE INDEX 0.81 (< OR =4); POTASSIUM SERUM 4.6 MEQ/L (3.5-5.1); SODIUM LEVEL 140 MEQ/L (136-145); TROPONIN I < 0.02 NG/ML (< 0.10)
[2021-04-04] MEDS ORDERED: MECLIZINE 25 MG TABLET PO ONE (21:00)
--- NOTE | 2021-04-04 22:07 | REPVR ---
PROCEDURE INFORMATION: Exam: CT Head Without Contrast Exam date and time: 04/04/2021 9:15 PM Age: 60 years old Clinical indication: Pain; Dizziness; Headache; Additional info: Headache dizziness TECHNIQUE: Imaging protocol: Computed tomography of the head without contrast. Radiation optimization: All CT scans at this facility use at least one of these dose optimization techniques: automated exposure control; mA and/or kV adjustment per patient size (includes targeted exams where dose is matched to clinical indication); or iterative reconstruction. COMPARISON: No relevant prior studies available. FINDINGS: Brain: There is minimal patchy low attenuation of deep white matter. The sulci are upper normal. Cerebral ventricles: No ventriculomegaly. Paranasal sinuses: Visualized sinuses are unremarkable. No fluid levels. Mastoid air cells: Visualized mastoid air cells are well aerated. Auditory system: Debris in the external auditory canals bilaterally. Bones/joints: Unremarkable. No acute fracture. Soft tissues: Unremarkable. IMPRESSION: 1. Minimal chronic ischemic white matter change. 2. Otherwise negative noncontrast head CT. Electronically signed by: Boogie Holland On 04/04/2021 22:07:33 PM
--- NOTE | 2021-04-04 22:28 | REPVR ---
PROCEDURE INFORMATION: Exam: US Duplex Right Lower Extremity Veins, Limited Exam date and time: 04/04/2021 10:23 PM Age: 60 years old Clinical indication: Pain; Leg, lower; Right; Additional info: Rle pain R/O dvt TECHNIQUE: Imaging protocol: Real-time Duplex ultrasound of the Right Lower Extremity with 2-D hidalgo scale, color Doppler flow and spectral waveform analysis with image documentation. Limited exam was focused on the right lower extremity veins. COMPARISON: US Duplex, Ext,LOWER veins,unilat 05/04/2017 9:00 PM FINDINGS: Right deep veins: Unremarkable. The common femoral, femoral, proximal profunda femoral and popliteal veins are patent without thrombus. Normal Doppler waveforms. Normal compressibility and/or augmentation response. Right superficial veins: Unremarkable. Saphenofemoral junction is patent without thrombus. Soft tissues: Unremarkable. IMPRESSION: Negative right lower extremity venous duplex exam without evidence of deep venous thrombosis. Electronically signed by: Boogie Holland On 04/04/2021 22:28:18 PM
--- NOTE | 2021-04-04 23:04 | REPVR ---
PROCEDURE INFORMATION: Exam: XR Right Tibia and Fibula Exam date and time: 04/04/2021 10:33 PM Age: 60 years old Clinical indication: Pain; Lower leg; Right; Additional info: Right low leg pain TECHNIQUE: Imaging protocol: XR Right tibia and fibula. Views: 2 views. COMPARISON: CR Tibia, Fibula lower leg 07/15/2020 7:11 AM FINDINGS: Bones/joints: Minimal degenerative changes at the ankle. No fractures. Soft tissues: Normal. IMPRESSION: Negative right tibia and fibula. No fracture. Electronically signed by: Boogie Holland On 04/04/2021 23:04:30 PM
[2021-04-05] MEDS ORDERED: ACETAMINOPHEN TAB 650MG DOSE (2X325MG) PO PRN (00:15)
[2021-04-05] MEDS ORDERED: MAALOX 30 ML SUSP *UDC PO PRN (00:15)
[2021-04-05] MEDS ORDERED: ASPIRIN 81 MG CHEW TABLET PO ONE (00:15)
[2021-04-05] MEDS ORDERED: ENALAPRIL MALEATE 5 MG TAB PO ONE (00:15)
[2021-04-05] MEDS ORDERED: MOM 30ML SUSPENSION UDC PO PRN (00:15)
--- NOTE | 2021-04-05 00:22 | HPEPDOC ---
[facility] Medical History & Physical Date of Admission Apr 05, 2021 Date of Service: Apr 05, 2021 Attending Physician: KESHIA PURCELL MD History and Physical TIME OF SERVICE: 1220pm CHIEF COMPLAINT: dizzy HISTORY OF PRESENT ILLNESS: is a 60 yr old who had the J&J COVID vaccine recently. Over the last 6 days he has felt dizzy, like the room is spinning and around him and had a MATA. He denied drooling, dropping objects, slurred speech, falling, chest pain or dyspnea. Per finger to nose testing was abnormal and the pt was unable to get up to walk despite a trail of meclizine REVIEW OF SYSTEMS: 12-point review of systems negative except as listed in HPI PAST MEDICAL/ SURGICAL HISTORY: Gout, obesity, sciatia, class 1 obesity, L inguinal hernia repair, denies hx of HTN SOCIAL HISTORY: he smokes and drinks alcohol occasionally FAMILY HISTORY: pancreatic cancer, breast cancer, DM ALLERGIES: Please see below. HOME MEDICATIONS: Please see below. PHYSICAL EXAMINATION: Vital Signs Date Time Temp Pulse Resp B/P (MAP) Pulse Ox O2 Delivery O2 Flow Rate FiO2 04/04/21 16:48 98.0 64 17 166/69 (101) 96 Room Air GENERAL APPEARANCE: obese / NAD HEENT: EOMI/ MMM&P CARDIOVASCULAR: RRR/NMRG LUNGS: CTAB on RA ABDOMEN: soft &NT MUSCULOSKELETAL: strength 5/5 INTEGUMENT: not pale or cyanotic NEUROLOGICAL: CN 2-12 intact/ finger to nose testing slightly abnormal with the right hand PSYCHIATRIC: A&Ox 3/ able to understand and follow all commands LABORATORY DATA: IMAGING: Chest xray IMPRESSION: There is no acute cardiopulmonary disease. CT head IMPRESSION: 1. Minimal chronic ischemic white matter change. 2. Otherwise negative noncontrast head CT. Tib/Fib xray IMPRESSION: Negative right tibia and fibula. No fracture. MICROBIOLOGY: respiratory panel neg ASSESSMENT: is a 60 yr old w Gout, obesity, sciatia, class 1 obesity admitted for HTN Urgency, and dizziness possibly due to vertigo vs posterior CVA. PLAN: 1 Hypertensive Urgency His SBP was >180 and he had an associated symptom the headache. There are no signs of end-organ damage so far Plan: admit to/PCU / enalaprilat PO now & start low dose HTCZ & Lisinopril for maintenance / will aim to lower BP by 25% w/in the first 2-4 hours with target BP of <160/100 / low salt diet / he can f/u w his PCP to discuss lifestyle recommendations ie the role of , smoking cessation and weigh loss in controlling BP / f/u Echo to r/o LVH 2 Bradycardia No CP Plan: telemetry & serial trops to r/o silent inferior OK / f/u Echo to r/o structural heart dz 3 Dizziness Plan; f/u MRI to r/o posterior CVA / c/w meclizine 4 Tobacco abuse Plan: smoking cessation education 5 Class 1 Obesity Complicates care Plan: f/u A1C to screen for DM DVT px w Lovenox (Marcus Score = 4 = pharmacological px indicated) Dispo: home after at least 2 midnights stay Home Medications Scheduled Lisinopril (Lisinopril) 2.5 Mg Tablet, 2.5 MG PO QHS Allergies Coded Allergies: No Known Allergies (Verified , 11/14/10) A-FIB/CHADSVASC A-FIB History Current/History of A-Fib/PAF?: No Current PO Anticoag Therapy: No KESHIA PURCELL MD Apr 05, 2021 00:22
[2021-04-05 01:10] LABS: RSV AMPLIFICATION NEGATIVE (NEGATIVE)
[2021-04-05 01:34] VITALS: BP 183/94
[2021-04-05 02:04] VITALS: BP 193/92
[2021-04-05 02:59] VITALS: BP 139/77
[2021-04-05 04:00] VITALS: BP 146/70
[2021-04-05 05:52] LABS: HEMATOCRIT 41.9 % (42.0-52.0); HEMOGLOBIN 13.5 g/dl (13.5-17.5); MEAN CORPUSCULAR HEMOGLOBIN 30.1 pg (27.0-33.0); MEAN CORPUSCULAR HGB CONC 32.2 g/dl (32.0-36.5); MEAN CORPUSCULAR VOLUME 93.5 fl (80.0-96.0); PLATELET COUNT, AUTOMATED 185 10^3/uL (150-450); RED BLOOD COUNT 4.48 10^6/uL (4.30-6.10); WHITE BLOOD COUNT 7.1 10^3/uL (4.0-10.0)
[2021-04-05 06:18] LABS: BLOOD UREA NITROGEN 16 MG/DL (7-18); CALCIUM LEVEL 8.3 MG/DL (8.5-10.1); CARBON DIOXIDE LEVEL 27 MEQ/L (21-32); CHLORIDE LEVEL 108 MEQ/L (98-107); CREATININE FOR GFR 0.91 MG/DL (0.70-1.30); GLOMERULAR FILTRATION RATE > 60.0 (>56); GLUCOSE, FASTING 99 MG/DL (70-100); SODIUM LEVEL 139 MEQ/L (136-145); TROPONIN I < 0.02 NG/ML (< 0.10)
[2021-04-05 06:43] LABS: HEMOGLOBIN A1c 5.7 %
[2021-04-05 08:00] VITALS: BP 128/77
[2021-04-05] MEDS ORDERED: HYDROCHLOROthiazide 6.25MG PER 1/4TAB PO SCH (09:00)
[2021-04-05] MEDS ORDERED: MECLIZINE 12.5 MG TAB PO SCH (09:00)
[2021-04-05] MEDS ORDERED: amLODIPine 5 MG TAB PO SCH (09:00)
[2021-04-05] MEDS ORDERED: ENOXAPARIN 40MG/0.4ML SYRINGE (J1650 PER 10MG) SC SCH (09:00)
--- NOTE | 2021-04-05 09:18 | REPVR ---
PROCEDURE INFORMATION: Exam: MRA Head Without Contrast; Arteriography Exam date and time: 04/05/2021 7:15 AM Age: 60 years old Clinical indication: Vertigo; Additional info: Stroke TECHNIQUE: Imaging protocol: Magnetic resonance angiography head without contrast. Exam focused on the arteries. COMPARISON: CT Head without contrast 04/04/2021 9:15 PM FINDINGS: ANTERIOR CIRCULATION: Right internal carotid artery: Intracranial segment is patent with no significant stenosis. No aneurysm. Right middle cerebral artery: No occlusion or significant stenosis. No aneurysm. Right anterior cerebral artery: No occlusion or significant stenosis. No aneurysm. Left internal carotid artery: Intracranial segment is patent with no significant stenosis. No aneurysm. Left middle cerebral artery: No occlusion or significant stenosis. No aneurysm. Left anterior cerebral artery: No occlusion or significant stenosis. No aneurysm. POSTERIOR CIRCULATION: Right vertebral artery: No occlusion or significant stenosis. No aneurysm. Left vertebral artery: No occlusion or significant stenosis. No aneurysm. Basilar artery: No occlusion or significant stenosis. No aneurysm. Right posterior cerebral artery: No occlusion or significant stenosis. No aneurysm. Left posterior cerebral artery: No occlusion or significant stenosis. No aneurysm. IMPRESSION: No stenosis or occlusion. Electronically signed by: Grazyna Carroll On 04/05/2021 09:18:10 AM
--- NOTE | 2021-04-05 09:28 | REPVR ---
PROCEDURE INFORMATION: Exam: MR Head Without Contrast Exam date and time: 04/05/2021 7:15 AM Age: 60 years old Clinical indication: Dizziness; Additional info: Accelerated HTN, vertigo and ataxia - R/O posterior CVA TECHNIQUE: Imaging protocol: MR of the head without contrast. COMPARISON: CT Head without contrast 04/04/2021 9:15 PM FINDINGS: Brain: There is no extra-axial collection or intra-axial mass. Mild diffuse volume loss is within the range of normal for patient age. There are scattered foci of T2/FLAIR white matter hyperintensity, nonspecific but typically small-vessel ischemia in this age group. There is no diffusion restriction. Cerebral ventricles: Normal. No ventriculomegaly. Bones/joints: Unremarkable. Paranasal sinuses: Normal as visualized. No acute sinusitis. Mastoid air cells: Normal as visualized. No mastoid effusion. Orbital cavity: Unremarkable. Soft tissues: Unremarkable. IMPRESSION: No acute intracranial abnormality. Electronically signed by: Grazyna Carroll On 04/05/2021 09:28:18 AM
[2021-04-05 12:00] VITALS: BP 136/78
[2021-04-05 14:01] LABS: RHEUMATOID FACTOR QUANT < 10.0 IU/ML (<15.0); URIC ACID 8.7 MG/DL (3.5-7.2)
[2021-04-05] MEDS ORDERED: LISI2.5T2 PO (15:28)
--- NOTE | 2021-04-05 20:50 | ECGEPIP ---
[facility] - ED Test Date: 2021-04-04 Pat Name: CHHAYA STAPLETON Department: Room: [place] [address] Gender: Male Agile Developer: HC : 1960 Requested By: MINDI Ferrell Order Number: [id number] Reading MD: Lachelle Evans Measurements Intervals [place] Rate: 54 P: 59 WI: 164 QRS: -37 QRSD: 90 T: 17 QT: 476 QTc: 451 Interpretive Statements Sinus bradycardia with sinus arrhythmia Possible Left atrial enlargement Left axis deviation right ventricular conduction delay No prior Electronically Signed on 04-05-2021 20:50:09 EDT by Lachelle Evans
[2021-04-05] MEDS ORDERED: LISINOPRIL *2.5 MG* TAB PO SCH (21:00)
[2021-04-06] MEDS ORDERED: FLUBLOK(EGG FREE)(QUAD)INFLUENZA VACC 0.5ML SYRINGE 18YRS & OLDER IM ONE (09:00)
--- NOTE | 2021-04-06 11:07 | ECHO ---
ECHOCARDIOGRAM DATE OF PROCEDURE: 04/05/2021 Age: Gender: Height: 175 cm Weight: 99 kg REFERRING PHYSICIAN: Dr. Elza Graf. INDICATION: Stroke. MEASUREMENTS: IVS 1.1 cm LV 5.2 cm LVPW 1.2 cm LA 3.8 cm Aorta 3.6 cm IVC 1.8 cm Mitral E wave velocity 81 A wave 114 E prime septal 6.8 E prime lateral 13.4 FINDINGS: This study is of acceptable technical quality. Underlying sinus rhythm. Normal LV size with borderline LVH and preserved LV systolic function. Estimated LVEF approximately 65 to 70%. I do not appreciate any segmental wall motion abnormalities. Right ventricle is also normal size and systolic function. Both atria appear at least mildly enlarged. Aortic valve is tricuspid and has normal mobility. Mitral and tricuspid valves also appear normal. Pulmonic valve was not well seen. No pericardial effusion is noted. Inferior vena cava is normal size. Aortic root appears normal. Aortic arch and abdominal aorta were poorly visualized. Doppler interrogation reveals competent aortic valve. There is trace tricuspid and trace mitral insufficiency. Calculated pulmonary artery pressure is in upper limits of normal valves, around 30 mmHg. Mitral inflow pattern and tissue Doppler imaging of mitral annulus revealed grade 1 diastolic dysfunction. CONCLUSIONS: 1. Study is of acceptable technical quality, underlying sinus rhythm. 2. Normal LV size with preserved LV systolic function and grade 1 diastolic dysfunction. 3. No hemodynamically significant valvular disease. 4. Likely normal central venous pressure and borderline pulmonary hypertension. 5. No obvious findings to explain etiology of stroke.
--- NOTE | 2021-04-07 13:28 | DS.PDOC ---
Discharge Summary General Date of Admission Apr 05, 2021 at 00:25 Date of Discharge 04/05/21 Discharge Summary PROCEDURES PERFORMED DURING STAY: [None]. DISCHARGE DIAGNOSES: Left BPPV Hypertension Gout Obesity Sciatica Arthritis COMPLICATIONS/CHIEF COMPLAINT: Hypertensive Urgency. HOSPITAL COURSE: ASSESSMENT: is a 60 yr old w Gout, obesity, sciatica, class 1 obesity presented to the ED with dizziness for 1 week mostly with change in posture and found to be in HTN Urgency. He was admitted for evaluation of dizziness and possible stroke. Patient had MRI and MRA brain done which were negative for any stroke. Vestibular function assessment by PT was done and he was found to have Left posterior canal BPPV. Pt treated with keena 2x's with no residual symptoms on third sadiq. Pt educated on findings of BPPV and recommendation for outpatient PT follow up in case symptoms return. With improvement of his dizziness his hypertensive urgency also resolved though he still di continue to have some elevated blood pressures so was started on lisonopril 2.5 mg daily. He was discharged home to follow up with PT for outpatient vestibular therapy. DISCHARGE MEDICATIONS: Please see below. ALLERGIES: Please see below. PHYSICAL EXAMINATION ON DISCHARGE: VITAL SIGNS: Please see below. GENERAL: obese / NAD CARDIOVASCULAR: RRR/ No Murmur Rub or Gallop LUNGS: CTAB on RA ABDOMEN: soft & nontender, bowel sounds normal MUSCULOSKELETAL: strength 5/5 INTEGUMENT: not pale or cyanotic PSYCHIATRIC: A&Ox 3/ able to understand and follow all commands LABORATORY DATA: Please see below. IMAGING: MRA Brain: ANTERIOR CIRCULATION: Right internal carotid artery: Intracranial segment is patent with no significant stenosis. No aneurysm. Right middle cerebral artery: No occlusion or significant stenosis. No aneurysm. Right anterior cerebral artery: No occlusion or significant stenosis. No aneurysm. Left internal carotid artery: Intracranial segment is patent with no significant stenosis. No aneurysm. Left middle cerebral artery: No occlusion or significant stenosis. No aneurysm. Left anterior cerebral artery: No occlusion or significant stenosis. No aneurysm. POSTERIOR CIRCULATION: Right vertebral artery: No occlusion or significant stenosis. No aneurysm. Left vertebral artery: No occlusion or significant stenosis. No aneurysm. Basilar artery: No occlusion or significant stenosis. No aneurysm. Right posterior cerebral artery: No occlusion or significant stenosis. No aneurysm. Left posterior cerebral artery: No occlusion or significant stenosis. No aneurysm. IMPRESSION: No stenosis or occlusion. MRI brain: FINDINGS: Brain: There is no extra-axial collection or intra-axial mass. Mild diffuse volume loss is within the range of normal for patient age. There are scattered foci of T2/FLAIR white matter hyperintensity, nonspecific but typically small-vessel ischemia in this age group. There is no diffusion restriction. Cerebral ventricles: Normal. No ventriculomegaly. Bones/joints: Unremarkable. Paranasal sinuses: Normal as visualized. No acute sinusitis. Mastoid air cells: Normal as visualized. No mastoid effusion. Orbital cavity: Unremarkable. Soft tissues: Unremarkable. IMPRESSION: No acute intracranial abnormality. Doppler US of the lower extremity: US Duplex, Ext,LOWER veins,unilat 05/04/2017 9:00 PM FINDINGS: Right deep veins: Unremarkable. The common femoral, femoral, proximal profunda femoral and popliteal veins are patent without thrombus. Normal Doppler waveforms. Normal compressibility and/or augmentation response. Right superficial veins: Unremarkable. Saphenofemoral junction is patent without thrombus. Soft tissues: Unremarkable. IMPRESSION: Negative right lower extremity venous duplex exam without evidence of deep venous thrombosis. ACTIVITY: [As tolerated]. DIET: regular DISPOSITION: 01 Home, Self-Care. DISCHARGE INSTRUCTIONS: PMD in 1 week DISCHARGE CONDITION: [Stable]. TIME SPENT ON DISCHARGE: 31 minutes. Vital Signs/I&Os Vital Signs Date Time Temp Pulse Resp B/P (MAP) Pulse Ox O2 Delivery O2 Flow Rate FiO2 04/05/21 12:00 98.8 52 18 136/78 (97) 96 Room Air Discharge Medications Scheduled Lisinopril (Lisinopril) 2.5 Mg Tablet, 2.5 MG PO QHS Allergies Coded Allergies: No Known Allergies (Verified , 11/14/10) ZAINA CRENSHAW MD Apr 07, 2021 13:28
== END 2021-04-05 16:10 | disposition home or self-care (01) | DRG 305 ==
LOC: M ED 16:47 → M ED INP 04-05 00:25 → ENRESERV 04-05 01:38 → M PCU 04-05 02:00
PROVIDERS: ADMIT Internal Medicine; ATTEND Internal Medicine Nephrology
DX: I16.0 Hypertensive urgency (principal); R00.1 Bradycardia, unspecified; M10.9 Gout, unspecified; E66.9 Obesity, unspecified; F17.200 Nicotine dependence, unspecified, uncomplicated

== ENCOUNTER 2021-05-09 15:25 | Emergency (ER) | payer MEDICARE ==
[~2021-05-09] VITALS: Ht 170.2 cm; Wt 99.2 kg
[~2021-05-09 15:25] MED LIST changes: +LISI2.5T2 PO
--- NOTE | 2021-05-09 16:58 | REP ---
INDICATION: swelling/erythema. COMPARISON: Comparison left wrist radiographs are from January 03, 2015.. TECHNIQUE: Four views of the left hand are obtained. FINDINGS: Four views of the left hand demonstrate marked soft tissue swelling dorsally over the metacarpals. There is no soft tissue gas or opaque foreign body. No fracture is apparent. There is degenerative narrowing of the 2nd MCP joint with subcortical cyst formation. This appears to have been present on the 2014 study. There is also soft tissue swelling fairly marked about the PIP joint of the long finger. No bony erosive changes seen.. . . IMPRESSION: Fairly marked soft tissue swelling dorsally over the metacarpals and extending into the fingers, particularly the long finger. No opaque foreign body, soft tissue gas, fracture, or acute bony erosive changes appreciated. 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 <Electronically signed by Mandeep Bailey > 05/09/21 [id number]
[2021-05-09 18:01] LABS: BASO % 0.4 % (0.0-1.0); EOS # 0.1 10^3/uL (0.0-0.5); EOS % 1.2 % (0.0-3.0); HEMOGLOBIN 13.8 g/dl (13.5-17.5); LYMPH # 1.8 10^3/uL (1.5-5.0); MEAN CORPUSCULAR HEMOGLOBIN 30.5 pg (27.0-33.0); MEAN CORPUSCULAR HGB CONC 32.9 g/dl (32.0-36.5); MEAN CORPUSCULAR VOLUME 92.7 fl (80.0-96.0); MONO # 0.6 10^3/uL (0.0-0.8); MONO % 6.9 % (2.0-8.0); NEUTROPHILS # 5.8 10^3/uL (1.5-8.5); NEUTROPHILS % 69.3 % (36.0-66.0); PLATELET COUNT, AUTOMATED 207 10^3/uL (150-450); RED BLOOD COUNT 4.53 10^6/uL (4.30-6.10); WHITE BLOOD COUNT 8.4 10^3/uL (4.0-10.0)
[2021-05-09] MEDS ORDERED: cefTRIAXone SOD 1 GM in D5W MINI-BAG PLUS 50 ML IV ONE (18:15)
[2021-05-09 18:31] LABS: ERYTHROCYTE SEDIMENTATION RATE 45 mm/hr (0-20)
[2021-05-09 18:34] LABS: ALBUMIN 3.7 GM/DL (3.2-5.2); ALT/SGPT 23 U/L (12-78); BILIRUBIN,DIRECT 0.1 MG/DL (0.0-0.2); BILIRUBIN,TOTAL 0.4 MG/DL (0.2-1.0); BLOOD UREA NITROGEN 12 MG/DL (7-18); C REACTIVE PROTEIN QUANTITATIV 4.79 MG/DL (0.00-0.30); CALCIUM LEVEL 8.4 MG/DL (8.5-10.1); CARBON DIOXIDE LEVEL 27 MEQ/L (21-32); CHLORIDE LEVEL 106 MEQ/L (98-107); CPK CREATINE PHOSPHOKINASE 249 U/L (39-308); CREATININE FOR GFR 0.99 MG/DL (0.70-1.30); GLOMERULAR FILTRATION RATE > 60.0 (>56); GLUCOSE, FASTING 109 MG/DL (70-100); NT-PRO BNP 104 PG/ML (<125); POTASSIUM SERUM 4.6 MEQ/L (3.5-5.1); SODIUM LEVEL 137 MEQ/L (136-145); TOTAL PROTEIN 7.3 GM/DL (6.4-8.2); TROPONIN I < 0.02 NG/ML (< 0.10)
[2021-05-09] MEDS ORDERED: LISINOPRIL *2.5 MG* TAB PO ONE (18:35)
[2021-05-09] MEDS ORDERED: LOSARTAN 25 MG TAB PO ONE (18:45)
[2021-05-09] MEDS ORDERED: LOSA25TA14 PO (20:10)
[2021-05-09] MEDS ORDERED: CEPH500C PO (20:15)
[2021-05-09] MEDS ORDERED: ACETAMINOPHEN 325 MG TAB PO ONE (20:20)
[2021-05-09] MEDS ORDERED: CEPHALEXIN 500 MG CAP PO ONE (20:25)
[2021-05-09 20:28] VITALS: BP 171/79
--- NOTE | 2021-05-09 22:24 | ECGEPIP ---
[facility] - ED Test Date: 2021-05-09 Pat Name: CHHAYA STAPLETON Department: Room: - Gender: Male Server: : 1960 Requested By: NORAH Watkins PA-C Order Number: [id number] Reading MD: Hammad Short Measurements Intervals [place] Rate: 60 P: 62 IN: 156 QRS: -41 QRSD: 90 T: 26 QT: 430 QTc: 430 Interpretive Statements Normal sinus rhythm Left axis deviation Similar to tracing done 04-04-21 but with higher rate Electronically Signed on 05-09-2021 22:23:32 EDT by Hammad Short
== END 2021-05-09 21:00 | disposition home or self-care (01) ==
LOC: M ED 15:25
DX: H81.10 Benign paroxysmal vertigo, unspecified ear (principal); L03.114 Cellulitis of left upper limb; M19.042 Primary osteoarthritis, left hand; E78.5 Hyperlipidemia, unspecified; I10 Essential (primary) hypertension; F17.200 Nicotine dependence, unspecified, uncomplicated
CPT/HCPCS: 73130; 80048; 80076; 81001; 82550; 82553; 83605; 83880; 84484; 85025; 85652; 86140; 93005; 96365; 99284; J0696

== ENCOUNTER 2021-08-09 10:27 | Emergency (ER) | payer MEDICARE ==
[~2021-08-09] VITALS: Ht 175.3 cm; Wt 86.8 kg
[~2021-08-09 10:27] MED LIST changes: +CEPH500C PO; -LISI2.5T2 PO; +LISI2.5T9 PO; +LOSA25TA14 PO
--- OUTSIDE RECORDS SUMMARY | 2021-08-09 10:38 | CCD ---
Author Author [facility] Organization [facility] Address Unknown Phone Unavailable Care Team Providers Care Stockroom Attendant Name Role Phone Marion Jacobsen ANP-BC Unavailable Unavailable Marion Jacobsen ANP-BC Unavailable Unavailable Marion Jacobsenn ANP-BC Unavailable Unavailable Marion Jacobsenn ANP-BC Unavailable Unavailable Marion Jacobsenn ANP-BC Unavailable Unavailable Marion Jacobsenn ANP-BC Unavailable Unavailable Marion Jacobsenn ANP-BC Unavailable Unavailable Marion Jacobsenn ANP-BC Unavailable Unavailable Marion Jacobsen Carline ANP-BC Unavailable Unavailable Marion Jacobsenn ANP-BC Unavailable Unavailable Marion Jacobsenn ANP-BC Unavailable Unavailable Marion Jacobsenn ANP-BC Unavailable Unavailable Marion Jacobsenn ANP-BC Unavailable Unavailable Marion Jacobsenn ANP-BC Unavailable Unavailable Marion Jacobsenn ANP-BC Unavailable Unavailable Marion Jacobsenn ANP-BC Unavailable Unavailable Marion Jacobsenn ANP-BC Unavailable Unavailable Marion Jacobsenn ANP-BC Unavailable Unavailable Delmar, Marion Carline ANP-BC Unavailable Unavailable Delmar, Marion Carline ANP-BC Unavailable Unavailable Delmar, Marion Carline ANP-BC Unavailable Unavailable Delmar, Marion Carline ANP-BC Unavailable Unavailable Delmar, Marion Carline ANP-BC Unavailable Unavailable Delmar, Marion Carline ANP-BC Unavailable Unavailable Delmar, Marion Carline ANP-BC Unavailable Unavailable Delamr, Marion Carline ANP-BC Unavailable Unavailable Delmar, Marion Carline ANP-BC Unavailable Unavailable Delmar, Marion Carline ANP-BC Unavailable Unavailable Delmar, Marion Carline ANP-BC Unavailable Unavailable Delmar, Marion Carline ANP-BC Unavailable Unavailable Delmar, Marion Carline ANP-BC Unavailable Unavailable Delmar, Marion Carline ANP-BC Unavailable Unavailable Delmar, Marion Carline ANP-BC Unavailable Unavailable Delmar, Marion Carline ANP-BC Unavailable Unavailable Delmar, Marion Carline ANP-BC Unavailable Unavailable Delmar, Marion Carline ANP-BC Unavailable Unavailable Delmar, Marion Carline ANP-BC Unavailable Unavailable Delmar, Marion Carline ANP-BC Unavailable Unavailable Delmar, Marion Carline ANP-BC Unavailable Unavailable Delmar, Marion Carline ANP-BC Unavailable Unavailable Delmar, Marion Carline ANP-BC Unavailable Unavailable Delmar, Marion Carline ANP-BC Unavailable Unavailable Delmar, Marion Carline ANP-BC Unavailable Unavailable Delmar, Marion Carline ANP-BC Unavailable Unavailable Delmar, Marion Carline ANP-BC Unavailable Unavailable Delmar, Marion Carline ANP-BC Unavailable Unavailable Delmar, Marion Carline ANP-BC Unavailable Unavailable Delmar, Marion Carline ANP-BC Unavailable Unavailable Delmar, Marion Carline ANP-BC Unavailable Unavailable Delmar, Marion Carline ANP-BC Unavailable Unavailable Delmar, Marion Carline ANP-BC Unavailable Unavailable Delmar, Marion Carline ANP-BC Unavailable Unavailable Delmar, Marion Carline ANP-BC Unavailable Unavailable Delmar, Marion Carline ANP-BC Unavailable Unavailable Delmar, Marion Carline ANP-BC Unavailable Unavailable Delmar, Marion Carline ANP-BC Unavailable Unavailable Delmar, Marion Carline ANP-BC Unavailable Unavailable Delmar, Marion Carline ANP-BC Unavailable Unavailable Delmar, Marion Carline ANP-BC Unavailable Unavailable Delmar, Marion Carline ANP-BC Unavailable Unavailable Delmar, Marion Carline ANP-BC Unavailable Unavailable Marion Jacobsen ANP-BC Unavailable Unavailable Marion Jacobsen ANP-BC Unavailable Unavailable Marion Jacobsen ANP-BC Unavailable Unavailable Marion Jacobsen ANP-BC Unavailable Unavailable Marion Jacobsen ANP-BC Unavailable Unavailable Re-disclosure Warning The records that you are about to access may contain information from federally-assisted alcohol or drug abuse programs. If such information is present, then the following federally mandated warning applies: This information has been disclosed to you from records protected by federal confidentiality rules (42 CFR part 2). The federal rules prohibit you from making any further disclosure of this information unless further disclosure is expressly permitted by the written consent of the person to whom it pertains or as otherwise permitted by 42 CFR part 2. A general authorization for the release of medical or other information is NOT sufficient for this purpose. The Federal rules restrict any use of the information to criminally investigate or prosecute any alcohol or drug abuse patient.The records that you are about to access may contain highly sensitive health information, the redisclosure of which is protected by Article 27-F of the [facility] Public Health law. If you continue you may have access to information: Regarding HIV / AIDS; Provided by facilities licensed or operated by the [facility] Office of Mental Health; or Provided by the [facility] Office for People With Developmental Disabilities. If such information is present, then the following [facility] mandated warning applies: This information has been disclosed to you from confidential records which are protected by state law. State law prohibits you from making any further disclosure of this information without the specific written consent of the person to whom it pertains, or as otherwise permitted by law. Any unauthorized further disclosure in violation of state law may result in a fine or senior care sentence or both. A general authorization for the release of medical or other information is NOT sufficient authorization for further disc losure. Encounters Encounter Providers Location Date Indications Data Source(s ) Unknown [id number] [facility] [address] 05/20/2021 12:00:00 AM EDT eCW1 ([facility]) Outpatient Attender: Carline VENTURA 06/23 08:01:00 AM EDT - 07/15/2020 08:01:00 AM EDT [facility] Outpatient Attender: Carline Jacobsen ANP-BC 06/23 01:46:00 PM EDT - 07/13/2020 01:46:00 PM EDT [facility] Immunizations Vaccine Date Status Description Data Source(s) COVID-19 VACCINE Jose Carlos 03/15/2021 12:00:00 AM EDT completed [facility] Vaccine Series Complete: YESThis Data wa s Submitted to [facility] Via [place] Self Representation Document Preparation. [employer] in 2011. IIV4 07/13/2020 02:12:00 PM EDT completed [facility] ([facility]) Medications Medication Brand Name Start Date Product Form Dose Route Admi nistrative Instructions Pharmacy Instructions Status Indications Reaction Description Data Source(s) 25 mg 05/10/2021 12:00:00 AM EDT tablet 30 TAKE ONE TABLET BY MOUTH EVERY DAY TAKE ONE TABLET BY MOUTH EVERY DAY SOLD: 05/10/2021 [facility] Cephalexin 500 MG Oral Capsule CEPHALEXIN 05/10/2021 12:00:00 AM EDT capsule 28 TAKE ONE CAPSULE BY MOUTH FOUR TIMES A DAY TAKE ONE CA PSULE BY MOUTH FOUR TIMES A DAY SOLD: 05/10/2021 [facility] 2.5 mg 04/05/2021 12:00:00 AM EDT tablet 30 TAKE ONE TABLET BY MOUTH AT BEDTIME TAKE ONE TABLET BY MOUTH AT BEDTIME SOLD: 04/05/2021 [facility] 800-160 mg 01/20/2021 12:00:00 AM EDT tablet 20 TAKE ONE TABLET BY MOUTH EVERY 12 HOURS TAKE ONE TABLET BY MOUTH EVERY 12 HOURS SOLD: 01/20/2021 [facility] Insurance Providers Payer name Policy type / Coverage type Policy ID Covered democrat ID Covered democrat's relationship to faith Policy Faith Plan Information MEDICARE A [id number] Self [id number] A MEDICARE COMPLETE [id number] SP [id number] [facility] [id number] SP [id number] MEDICARE COMPLETE-UHC O [id number] S [id number] MEDICARE COMPLETE-UHC O [id number] S [id number] [place] [id number] 18 [id number] [facility] [id number] MEDICARE C [id number] S [id number] A MEDICARE [id number] SP [id number] A MEDICAID [id number] SP [id number] [employer] UNAVAILABLE S UNAVAILABLE [employer] [id number] S [id number] [facility] COMMUN[facility] [id number] SP [id number] SELF PAY UNAVAILABLE SP UNAVAILA [facility] P [id number] S [id number] [facility] COMMUNITY [facility] [id number] SP [id number] MEDICARE [id number] SP [id number] Problems, Conditions, and Diagnoses Code Display Name Description Problem Type Effective Dates Data Source(s) L989 Disorder of the skin and subcutaneous ti ssue, unspecified Disorder of the skin and subcutaneous tissue, unspecified Diagnosis 07/13/2020 01:46:0 0 PM EDT [facility] R0789 Other chest pain Other chest pain Diagnosis 07/13/2020 01 :46:00 PM EDT [facility] M069 Rheumatoid arthritis, unspecified Rheumatoid art hritis, unspecified Diagnosis 07/13/2020 01:46:00 PM EDT [facility] E7800 Pure hypercholesterolemia, unspecified P ure hypercholesterolemia, unspecified Diagnosis 07/13/2020 01:46:00 PM EDT [facility] W42776 Elevated white blood cell count, unspeci fied Elevated white blood cell count, unspecified Diagnosis 07/13/2020 01:46:00 PM EDT [facility] F1020 Alcohol dependence, uncomplicated Alcohol depend ence, uncomplicated Diagnosis 07/13/2020 01:46:00 PM EDT [facility] J04068 Nicotine dependence, cigarettes, uncompl icated Nicotine dependence, cigarettes, uncomplicated Diagnosis 07/13/2020 01:46:00 PM EDT [facility] Z23 Encounter for immunization Encounter for immunization Diagnosis 07/13/2020 01:46:00 PM EDT [facility] [id number] Fall on same level due to stepping on an object, subsequent encounter Fall on same level due to stepping on an object, subsequent encounter Diagnosis 07/13/2020 01:46:00 PM EDT [facility] B351 Tinea unguium Tinea unguium Diagnosis 07/13/2020 01:46:00 PM EDT [facility] R609 Edema, unspecified Edema, unspecified Diagnosis 0 01:46:00 PM EDT [facility] S77996 Pain in right lower leg Pain in right lower leg Diagno sis 07/13/2020 01:46:00 PM EDT [facility] K4091 Unilateral inguinal hernia, without obst ruction or gangrene, recurrent Unilateral inguinal hernia, without obstruction or gangrene, recurrent Diagnosis 07/13/2020 01:46:00 PM EDT [facility] K429 Umbilical hernia without obstruction or gangrene Umbilical hernia without obstruction or gangrene Diagnosis 07/13/2020 01:46:00 PM EDT [facility] F10.20 Moderate alcohol dependence Moderate alcohol dependenc e Problem 07/13/2020 12:00:00 AM EDT [facility] ([facility]) F17.210 Tobacco user Tobacco user Problem 07/13/2020 12:00:00 A M EDT [facility] ([facility]) Note: Smokes 3/4 pk/day B35.1 Onychomycosis Onychomycosis Problem 07/13/2020 12:00:00 AM EDT [facility] ([facility]) R60.9 Edema Edema Problem 07/13/2020 12:00:00 AM ED T [facility] ([facility]) Note: Bilateral LE edema M79.661 Pain in calf Pain in calf Problem 07/13/2020 12:00:00 A M EDT [facility] ([facility]) K40.21 Bilateral recurrent inguinal hernia Bilateral re current inguinal hernia Problem 07/13/2020 12:00:00 AM EDT [facility] ([facility]) K42.9 Umbilical hernia Umbilical hernia Problem 07/13/2020 12 :00:00 AM EDT [facility] ([facility]) Surgeries/Procedures Procedure Description Date Indications Data Source(s) Brief Emotional/Behav Assessment W/ Scoring Doc Per Standard Inst 07/13/2020 12:00:00 AM EDT [facility] ([facility]) Admin Patient Focused Health Risk Assessment Instrument 07/13/2020 12:00:00 AM EDT [facility] ([facility]) Results ID Date Data Source [id number] 04/05/2021 12:18:00 AM [facility] Name Value Range Interpretation Code Description Data Francine rce(s) Supporting Document(s) SARS coronavirus 2 RNA [Presence] in Res piratory specimen by ANATOLIY with probe detection NEGATIVE [facility]SDOH This lab was ordered by [facility] a nd reported by [facility]. ID Date Data Source [id number] 01/19/2021 10:59:00 PM EDT [facility] ([facility]) Name Value Range Interpretation Code Description Data Francine rce(s) Supporting Document(s) Laboratory test finding (navigational concept) 40.0 % 3 8.0-51.0 Normal (applies to non-numeric results) [facility] Laboratory test finding (navigational concept) 137 meq/L 1 36-145 Normal (applies to non-numeric results) [facility]) Laboratory test finding (navigational concept) 101 mg/dL 7 0-105 Normal (applies to non-numeric results) [facility]) Laboratory test finding (navigational concept) 4.0 meq/L 3 .5-5.1 Normal (applies to non-numeric results) [facility]) Laboratory test finding (navigational concept) 4.8 mg/dL 4 .5-5.3 Normal (applies to non-numeric results) [facility]) Laboratory test finding (navigational concept) 103 meq/L 9 8-109 Normal (applies to non-numeric results) [facility]) Laboratory test finding (navigational concept) 26.0 MM/L 2 3.0-27.0 Normal (applies to non-numeric results) [facility] ([facility]) Laboratory test finding (navigational concept) 24 mg/dL 8 -26 Normal (applies to non-numeric results) [facility] ([facility]) Laboratory test finding (navigational concept) 1.3 mg/dL 0 .6-1.3 Normal (applies to non-numeric results) [facility]) ID Date Data Source [id number] 01/19/2021 10:46:00 PM EDT [facility] ([facility]) Name Value Range Interpretation Code Description Data [facility] rce(s) Supporting Document(s) Blood Culture Laboratory test result [facility]) No growth after 72 hours . All specimens observed for 5 days. Results final at that time. No growth after 48 hours . All specimens observed for 5 days. Results final at that time. No growth after 24 hours . All specimens observed for 5 days. Results final at that time. NO GROWTH AFTER 5 DAYS ID Date Data Source [id number] 01/19/2021 10:46:00 PM EDT [facility]) Name Value Range Interpretation Code Description Data Francine rce(s) Supporting Document(s) C reactive protein [Mass/volume] in Serum or Plasma by High sensitivity method 1.12 mg/dL 0.00-0.30 Above high normal [facility] ([facility]) Lactate [Mass/volume] in Serum or Plasma 0.8 mmol/L 0.4-2.0 Normal (applies to non-numeric results) [facility] ([facility]) Y/N query for Sepsis Lactate Rule: Y ID Date Data Source [id number] 01/19/2021 10:46:00 PM EDT [facility] ([facility]) Name Value Range Interpretation Code Description Data Francine rce(s) Supporting Document(s) Ast/Sgot 13 U/L 7-37 Normal (applies to non-numeric resul ts) [facility]) Alt/SGPT 25 U/L 12-78 Normal (applies to non-numeric resul ts) [facility] ([facility]) Alkaline Phosphatase 79 U/L 45-117 Normal (applies to non-num be results) [facility] ([facility]) Bilirubin,Total 0.2 mg/dL 0.2-1.0 Normal (applies to non-numeric results) [facility] ([facility]) Bilirubin,Direct Laboratory test result 0.0-0.2 Normal ( applies to non-numeric results) [facility] ([facility]) Total Protein 7.2 GM/DL 6.4-8.2 Normal (applies to non-numeric re sults) [facility] ([facility]) Albumin 3.7 GM/DL 3.2-5.2 Normal (applies to non-numeric resul ts) [facility] ([facility]) Albumin/Globulin Ratio 1.1 Normal (applies to non-n umeric results) [facility] ([facility]) ID Date Data Source [id number] 01/19/2021 10:46:00 PM EDT [facility] ([facility]) Name Value Range Interpretation Code Description Data Francine rce(s) Supporting Document(s) Erythrocyte sedimentation rate by Westergren method 22 mm/hr 0-20 Above high normal [facility] ([facility]) ID Date Data Source [id number] 01/19/2021 10:46:00 PM EDT [facility] ([facility]) Name Value Range Interpretation Code Description Data Francine rce(s) Supporting Document(s) White Blood Count 11.2 10 4.0-10.0 Above high normal [facility] ([facility]) Red Blood Count 4.42 10 4.30-6.10 Normal (applies to non-numeric results) [facility] ([facility]) Hemoglobin 13.7 g/dL 13.5-17.5 Normal (applies to non-numeric resul ts) [facility] ([facility]) Hematocrit 41.5 % 42.0-52.0 Below low normal [facility] ( [facility]) Mean Corpuscular Volume 93.9 fl 80.0-96.0 Normal ( applies to non-numeric results) [facility] ([facility]) Mean Corpuscular Hemoglobin 31.0 pg 27.0-33.0 Norm al (applies to non-numeric results) [facility] ([facility]) Mean Corpuscular HGB Conc 33.0 g/dL 32.0-36.5 Normal (applies to non-numeric results) [facility] ([facility]) Red Cell Distribution Width 12.3 % 11.5-14.5 Norm al (applies to non-numeric results) [facility] ([facility]) Platelet Count, Automated 206 10 150-450 Normal (applies to non-numeric results) [facility] ([facility]) Neutrophils % 69.1 % 36.0-66.0 Above high normal [facility] ([facility]) Lymph % 21.6 % 24.0-44.0 Below low normal [facility] ( [facility]) Mclean % 7.2 % 2.0-8.0 Normal (applies to non-numeric resul ts) [facility] ([facility]) Eos % 1.4 % 0.0-3.0 Normal (applies to non-numeric resul ts) [facility] ([facility]) Baso % 0.2 % 0.0-1.0 Normal (applies to non-numeric resul ts) [facility] ([facility]) Immature Granulocyte % 0.5 % 0-3.0 Normal (applies to non-n umeric results) [facility] ([facility]) Nucleated Red Blood Cell % 0.0 % 0-0 Normal (applies to n on-numeric results) [facility] ([facility]) Neutrophils # 7.7 10 1.5-8.5 Normal (applies to non-numeric re sults) [facility] ([facility]) Lymph # 2.4 10 1.5-5.0 Normal (applies to non-numeric resul ts) [facility] ([facility]) Mclean # 0.8 10 0.0-0.8 Normal (applies to non-numeric resul ts) [facility] ([facility]) Eos # 0.2 10 0.0-0.5 Normal (applies to non-numeric resul ts) [facility] ([facility]) Baso # 0.0 10 0.0-0.2 Normal (applies to non-numeric resul ts) [facility] ([facility]) ID Date Data Source [id number] 07/15/2020 08:01:00 AM EDT [facility] ([facility]) Name Value Range Interpretation Code Description Data Francine rce(s) Supporting Document(s) Rheumatoid factor [Units/volume] in Serum or Plasma Laboratory test result [facility] ([facility]) ID Date Data Source [id number] 07/15/2020 08:01:00 AM EDT [facility] ([facility]) Name Value Range Interpretation Code Description Data Francine rce(s) Supporting Document(s) Thyrotropin [Units/volume] in Serum or Plasma Laboratory test result [facility] ([facility]) Hemoglobin A1c/Hemoglobin.total in Blood Laboratory test result [facility] ([facility]) ID Date Data Source [id number] 07/15/2020 06:15:00 PM EDT [facility] Name Value Range Interpretation Code Description Data Francine rce(s) Supporting Document(s) Thyrotropin [Units/volume] in Serum or Plasma by Detec tion limit <= 0.05 mIU/L 1.22 uIU/mL 0.47 - 5.01 [facility] ID Date Data Source [id number] 07/15/2020 05:53:00 PM EDT [facility] Name Value Range Interpretation Code Description Data Francine rce(s) Supporting Document(s) RA QUANT <10 IU/mL 0 - 14 [facility] ID Date Data Source [id number] 07/15/2020 05:53:[address] [facility] Value Range Interpretation Code Description Data Francine rce(s) Supporting Document(s) CVE PANEL [facility] LIPID PANEL Cholesterol [Mass/volume] in Serum or Plasma 182 MG/DL 131 - 200 [facility] Deprecated Triglyceride [Mass/volume] in Serum or Plasma 328 MG/DL 3 5 - 160 H [facility] HDL 43 MG/DL 29 - 86 [facility] Cholesterol in LDL [Mass/volume] in Serum or Plasma by Direc t assay 94 mg/dL 65 - 175 [facility] Cholesterol.total/Cholesterol in HDL [Mass Ratio] in Serum o r Plasma 4.2 3.4 - 4.9 [facility] LDL/HDL 2.19 1.00 - 3.55 [facility] ital CVE RISK CHOL/HDL LDL/HDLMEN: 1/2 AVERAGE 3.43 1.00 AVERAGE 4.97 3.55 2X AVERAGE 9.55 6.25 3X AVERAGE 23.99 7.99WOMEN: 1/2 AVERAGE 3.27 1.47 AVERAGE 4.44 3.22 2X AVERAGE 7.05 5.03 3X AVERAGE 11.04 6.14 ID Date Data Source [id number] 07/15/2020 05:53:00 PM EDT [facility] Name Value Range Interpretation Code Description Data Francine rce(s) Supporting Document(s) COMPREHENSIVE METABOLIC PANEL [facility] COMPREHENSIVE METABOLIC PANEL Sodium [Moles/volume] in Serum or Plasma 140 mEq/L 134 - 153 [facility] Potassium [Moles/volume] in Serum or Plasma 4.5 mEq/L 3.6 - 5.0 [facility] Chloride [Moles/volume] in Serum or Plasma 104 mEq/L 98 - 107 [facility] Carbon dioxide, total [Moles/volume] in Serum or Plasma 28 MEQ/L 22 - 30 [facility] Glucose [Mass/volume] in Serum or Plasma 98 MG/DL 65 - 110 [facility] BUN 12 MG/DL 7 - 21 [facility] Creatinine [Mass/volume] in Serum or Plasma 1.1 MG/DL 0.7 - 1.5 [facility] BUN/CREAT 11 8 - 27 [facility] Protein [Mass/volume] in Serum or Plasma 6.9 G/DL 6.3 - 8.2 [facility] Albumin [Mass/volume] in Serum or Plasma 4.3 G/DL 3.9 - 5.0 [facility] Globulin [Mass/volume] in Serum by calculation 2.6 GM/DL 2.4 - 3.2 [facility] A/G RATIO 1.7 0.8 - 2.0 [facility] Calcium [Mass/volume] in Serum or Plasma 8.9 MG/DL 8.4 - 10.2 [facility] Bilirubin.total [Mass/volume] in Serum or Plasma <0.7 MG/DL 0.2 - 1.3 [facility] Alkaline phosphatase [Enzymatic activity/volume] in Serum or Plasma 62 U/L 38 - 126 [facility] Aspartate aminotransferase [Enzymatic activity/volume] in Serum or Plasma 16 U/L 5 - 40 [facility] Alanine aminotransferase [Enzymatic activity/volume] in Seru m or Plasma 16 U/L 7 - 56 [facility] Anion gap 3 in Serum or Plasma 8.0 mmol/L 8.0 - 16.0 [facility]GE 59 [facility] >60 mL/min [facility] AFR AMER GFR >60 mL/min [facility] sp[facility] Male GFR In terprentation 20-49 yrs >60 mL/min Normal 50-59 yrs >56 mL/min Normal 60-69 yrs >49 mL/min Normal 70-79yrs >42 mL/min Normal 80 and above >35 mL/min Normal Female GFR Interpretation 20-39 yrs >60 mL/min Normal 40-49 yrs >58 mL/min Normal 50-59 yrs >51 mL/min Normal 60-69 yrs >45 mL/min Normal 70-79 yrs >39 mL/min Normal 80 and above >32 mL/min Normal ID Date Data Source [id number] 07/15/2020 05:27:00 PM EDT [facility] Name Value Range Interpretation Code Description Data Francine rce(s) Supporting Document(s) Hemoglobin A1c/Hemoglobin.total in Blood 5.4 % 4.4 - 6.1 [facility] Center {A1]{HB] ID Date Data Source [id number] 07/15/2020 05:02:00 PM EDT [facility] Name Value Range Interpretation Code Description Data Francine rce(s) Supporting Document(s) CBC W/AUTOMATED DIFF [facility] COMPLETE BLOOD COUNT Leukocytes [#/volume] in Blood by Automated count 5.1 10^3/uL 4.2 - 1 1.0 [facility] Erythrocytes [#/volume] in Blood by Automated count 4.67 10^6/uL 4. 50 - 6.30 [facility] Hemoglobin [Mass/volume] in Blood 14.6 g/dL 14.0 - 16.0 [facility] Hematocrit [Volume Fraction] of Blood by Automated count 43.8 % 4 1.0 - 51.0 [facility] Erythrocyte mean corpuscular volume [Entitic volume] by Auto mated count 93.8 fL 80.0 - 94.0 [facility] Erythrocyte mean corpuscular hemoglobin [Entitic mass] by Automated count 31.3 pg 27.0 - 34.0 [facility] Erythrocyte mean corpuscular hemoglobin concentration [Mass/volume] by Automated count 33.3 g/dL 31.0 - 36.0 [facility] Erythrocyte distribution width [Ratio] by Automated count 13.2 % 11.5 - 14.8 [facility] Platelets [#/volume] in Blood by Automated count 176 10^3/uL 150 - 45 0 [facility] Platelet mean volume [Entitic volume] in Blood by Automated count 9.8 fL 7.4 - 10.4 [facility] Neutrophils/100 leukocytes in Blood by Automated count 50.0 % 37. 0 - 80.0 [facility] Lymphocytes/100 leukocytes in Blood by Manual count 36.6 % 25.0 - 40.0 [facility] Monocytes/100 leukocytes in Blood by Automated count 9.3 % 3.0 - 8.0 H [facility] Eosinophils/100 leukocytes in Blood by Automated count 3.3 % 0.0 - 7.0 [facility] Basophils/100 leukocytes in Blood by Automated count 0.6 % 0.0 - 2.0 [facility] %IG 0.2 % 0.0 - [facility].0 % 0.0 - 0.0 [facility] al Neutrophils [#/volume] in Blood by Automated count 2.57 10^3/uL 2.00 - 6.90 [facility] Lymphocytes [#/volume] in Blood by Automated count 1.88 10^3/uL 0.60 - 3.40 [facility] Monocytes [#/volume] in Blood by Automated count 0.48 10^3/uL 0.00 - 0.90 [facility] Eosinophils [#/volume] in Blood by Automated count 0.17 10^3/uL 0.00 - 0.70 [facility] Basophils [#/volume] in Blood by Automated count 0.03 10^3/uL 0.00 - 0.20 [facility] #IG 0.01 10^3/uL 0.00 - 0.10 [facility] #NRBC 0.00 10^3/uL 0.00 - 0.00 [facility] MANUAL DIFF NOT INDICATED [facility] RBC MORPH NOT INDICATED [facility] Procedure Social History No Information Vital Signs ID Date Data Source UNK Name Value Range Interpretation Code Description Data Source(s) Systolic blood pressure 130 mm[Hg] 130 mm[Hg] M [facility] ([facility]) Diastolic blood pressure 70 mm[Hg] 70 mm[Hg] [facility] ([facility]) Heart rate 58 /min 58 /min [facility] ([facility]) Body temperature 98.5 [degF] 98.5 [degF] [facility] ([facility]) Respiratory rate 18 /min 18 /min [facility] ( [facility]) Oxygen saturation in Arterial blood by Pulse oximetry 96 % 96 % [facility] ([facility]) Body weight 197.50 [lb_av] 197.50 [lb_av] [facility] T ([facility]) Body weight 89.586 kg 89.586 kg [facility] ([facility]) Body height 69 [in_i] 69 [in_i] [facility] ([facility]) 5'9" Body mass index (BMI) [Ratio] 29.2 kg/m2 29.2 k g/m2 [facility] ([facility]) Body surface area Derived from formula 2.05 m2 2.05 m2 [facility] ([facility])
--- OUTSIDE RECORDS SUMMARY | 2021-08-09 10:38 | CCD ---
Author Author [facility] Organization [facility] Address Unknown Phone Unavailable Care Team Providers Care Collections Technician Name Role Phone Louann Fulton Unavailable PROBLEMS ALLERGIES No Known Allergies ENCOUNTERS from 1961 to 2021-05-21 IMMUNIZATIONS SOCIAL HISTORY REASON FOR REFERRAL No Information VITAL SIGNS MEDICATIONS PROCEDURES No Information RESULTS No Results REASON FOR VISIT MEDICAL (GENERAL) HISTORY Goals Section Health Concerns MEDICAL EQUIPMENT No Information MENTAL STATUS FUNCTIONAL STATUS ASSESSMENTS No Information PLAN OF TREATMENT Insurance Providers
[2021-08-09] MEDS ORDERED: NORCO, ANEXSIA 5/325MG TABLET (HYDROcodone/ACETAMINOPHEN) PO ONE (12:05)
[2021-08-09 12:43] LABS: BASO % 0.2 % (0.0-1.0); EOS % 0.2 % (0.0-3.0); HEMATOCRIT 48.6 % (42.0-52.0); HEMOGLOBIN 16.1 g/dl (13.5-17.5); LYMPH # 1.4 10^3/uL (1.5-5.0); LYMPH % 11.1 % (24.0-44.0); MEAN CORPUSCULAR HEMOGLOBIN 29.9 pg (27.0-33.0); MEAN CORPUSCULAR HGB CONC 33.1 g/dl (32.0-36.5); MEAN CORPUSCULAR VOLUME 90.2 fl (80.0-96.0); MONO # 0.9 10^3/uL (0.0-0.8); MONO % 7.3 % (2.0-8.0); NEUTROPHILS # 10.3 10^3/uL (1.5-8.5); NEUTROPHILS % 80.8 % (36.0-66.0); PLATELET COUNT, AUTOMATED 204 10^3/uL (150-450); RED BLOOD COUNT 5.39 10^6/uL (4.30-6.10); WHITE BLOOD COUNT 12.8 10^3/uL (4.0-10.0)
--- NOTE | 2021-08-09 12:45 | REP ---
INDICATION: r/o osteomyelitis, cellulitis lateral aspect COMPARISON: None. TECHNIQUE: Two views left ankle. FINDINGS: There is no evidence of acute fracture, dislocation, or intrinsic bone disease.There is moderate soft tissue swelling, particularly laterally. There is no osseous destruction or periosteal reaction. IMPRESSION: No osseous abnormality seen. Moderate soft tissue swelling. <Electronically signed by Salvatore Rojas > 08/09/21 1467
--- OUTSIDE RECORDS SUMMARY | 2021-08-09 12:54 | CCD ---
Author Author [facility] Organization [facility] Address Unknown Phone Unavailable Care Team Providers Care Apparel Sales Associate Name Role Phone Marion Jacobsen ANP-BC Unavailable [...] Delmar, Marion Carline ANP-BC Unavailable Unavailable Delmar, Maroin Carline ANP-BC Unavailable Unavailable Delmar, Marion Carline ANP-BC Unavailable Unavailable Delmar, Marion Carline ANP-BC Unavailable Unavailable Delmar, Marion Carline ANP-BC Unavailable Unavailable Delmar, Marion Carline ANP-BC Unavailable Unavailable Delmar, Marion Carline ANP-BC Unavailable Unavailable Delmar, Marion Carline ANP-BC Unavailable Unavailable Delmar, Marion Carline ANP-BC Unavailable Unavailable Delmar, Marino Carline ANP-BC Unavailable Unavailable Delmar, Marion Carline [...] is protected by Article 27-F of the [facility] Public Health law. If you continue you may have access to information: Regarding HIV / AIDS; Provided by facilities licensed or operated by the [facility] Office of Mental Health; or Provided by the [facility] Office for People With Developmental Disabilities. If such information is present, then the following [facility] mandated warning applies: This information has been [...] law may result in a fine or intermediate sentence or both. A general authorization for the release of medical or other information is NOT sufficient authorization for further disc losure. Encounters Encounter Providers Location Date Indications Data Source(s ) Unknown [address] [facility] [address] 05/20/2021 12:00:00 AM EDT eCW1 ([facility]) Outpatient Attender: Carline VENTURA 06/23 08:01:00 AM EDT - 07/15/2020 08:01:00 AM EDT [facility] Outpatient Attender: Carline Jacobsen ANP-BC 06/23 01:46:00 PM EDT - 07/13/2020 01:46:00 PM EDT [facility] Immunizations Vaccine Date Status Description Data Source(s) COVID-19 VACCINE Jose Carlos 03/15/2021 12:00:00 AM EDT completed NYSIIS Vaccine Series Complete: YESThis Data wa s Submitted to [facility] Via [employer]. Eyenalyze in 2011. IIV4 07/13/2020 02:12:00 PM EDT completed [facility] ([facility]) Medications Medication Brand Name Start Date [...] type / Coverage type Policy ID Covered constitution party ID Covered constitution party's relationship to faith Policy Faith Plan Information MEDICARE A [id number] Self [id number] A MEDICARE [id number] SP [id number] MEDICARE COMPLETE [id number] SP [id number] MEDICARE COMPLETE-UHC O [id number] S [id number] MEDICARE COMPLETE-UHC O [id number] S [id number] [place] [id number] 18 [id number] [facility] [id number] MEDICARE C [id number] S [id number] A MEDICARE [id number] SP [id number] A MEDICAID [id number] SP [id number] [facility] UNAVAILABLE S UNAVAILABLE [facility] [id number] S [id number] UN COMMUNITY PLAN [facility] [id number] SP [id number] SELF PAY UNAVAILABLE SP UNAVAILA BLE [facility]) P [id number] S [id number] UN COMMUNITY PLAN [facility] [id number] SP [id number] [facility] [id number] SP [id number] Problems, Conditions, and Diagnoses Code Display Name Description Problem Type Effective Dates Data Source(s) L989 Disorder of the skin and subcutaneous ti ssue, unspecified Disorder of the skin and subcutaneous tissue, unspecified Diagnosis 07/13/2020 01:46:0 0 PM EDT [facility] R0789 Other chest pain Other chest pain Diagnosis 07/13/2020 01 :46:00 PM EDT [facility] M069 Rheumatoid arthritis, unspecified Rheumatoid art hritis, unspecified Diagnosis 07/13/2020 01:46:00 PM EDT [facility] E7800 Pure hypercholesterolemia, unspecified P ure hypercholesterolemia, unspecified Diagnosis 07/13/2020 01:46:00 PM EDT [facility] [id number] Elevated white blood cell count, unspeci fied Elevated white blood cell count, unspecified Diagnosis 07/13/2020 01:46:00 PM EDT [facility] F1020 Alcohol dependence, uncomplicated Alcohol depend ence, uncomplicated Diagnosis 07/13/2020 01:46:00 PM EDT [facility] [id number] Nicotine dependence, cigarettes, uncompl icated Nicotine dependence, cigarettes, uncomplicated Diagnosis 07/13/2020 01:46:00 PM EDT [facility] Z23 Encounter for immunization Encounter for immunization Diagnosis 07/13/2020 01:46:00 PM EDT [facility] [id number] Fall on same level due to stepping on an object, subsequent encounter Fall on same level due to stepping on an object, subsequent encounter Diagnosis 07/13/2020 01:46:00 PM EDT [facility] B351 Tinea unguium Tinea unguium Diagnosis 07/13/2020 01:46:00 PM EDT [facility] R609 Edema, unspecified Edema, unspecified Diagnosis 0 01:46:00 PM EDT [facility] [id number] Pain in right lower leg Pain in right lower leg Diagno sis 07/13/2020 01:46:00 PM EDT [facility] K4091 Unilateral inguinal hernia, without obst ruction or gangrene, recurrent Unilateral inguinal hernia, without obstruction or gangrene, recurrent Diagnosis 07/13/2020 01:46:00 PM EDT [facility] K429 Umbilical hernia without obstruction or gangrene Umbilical hernia without obstruction or gangrene Diagnosis 07/13/2020 01:46:00 PM EDT [facility] F10.20 Moderate alcohol dependence Moderate alcohol dependenc e Problem 07/13/2020 12:00:00 AM EDT [facility] ([facility]) F17.210 Tobacco user Tobacco user Problem 07/13/2020 12:00:00 A M EDT [facility] ([facility]) Note: Smokes 3/4 pk/day B35.1 Onychomycosis Onychomycosis Problem 07/13/2020 12:00:00 AM EDT [facility] ([facility]) R60.9 Edema Edema Problem 07/13/2020 12:00:00 AM ED T [facility] ([facility]) Note: Bilateral LE edema M79.661 Pain in calf Pain in calf Problem 07/13/2020 12:00:00 A M EDT [facility] ([facility]) K40.21 Bilateral recurrent inguinal hernia Bilateral re current inguinal hernia Problem 07/13/2020 12:00:00 AM EDT [facility] ([facility]) K42.9 Umbilical hernia Umbilical hernia Problem 07/13/2020 12 :00:00 AM EDT [facility] ([facility]) Surgeries/Procedures Procedure Description Date Indications Data Source(s) Brief Emotional/Behav Assessment W/ Scoring Doc Per Standard Inst 07/13/2020 12:00:00 AM EDT [facility] ([facility]) Admin Patient Focused Health Risk Assessment Instrument 07/13/2020 12:00:00 AM EDT [facility] ([facility]) Results ID Date Data Source [id number] 04/05/2021 12:18:00 AM EDT [facility] Name Value Range Interpretation Code Description Data Francine rce(s) Supporting Document(s) SARS coronavirus 2 RNA [Presence] in Res piratory specimen by ANATOLIY with probe detection NEGATIVE NYSDOH This lab was ordered by [facility] a nd reported by [facility]. ID Date Data Source [id number] 01/19/2021 10:59:00 PM EDT [facility] ([facility]) Name Value Range Interpretation Code Description Data Francine rce(s) Supporting Document(s) Laboratory test finding (navigational concept) 40.0 % 3 8.0-51.0 Normal (applies to non-numeric results) [facility] Laboratory test finding (navigational concept) 137 meq/L 1 36-145 Normal (applies to non-numeric results) [facility]) Laboratory test finding (navigational concept) 101 mg/dL 7 0-105 Normal (applies to non-numeric results) [facility] ([facility]) Laboratory test finding (navigational concept) 4.0 meq/L 3 .5-5.1 Normal (applies to non-numeric results) [facility] ([facility]) Laboratory test finding (navigational concept) 4.8 mg/dL 4 .5-5.3 Normal (applies to non-numeric results) [facility]) Laboratory test finding (navigational concept) 103 meq/L 9 8-109 Normal (applies to non-numeric results) [facility] ([facility]) Laboratory test finding (navigational concept) 26.0 MM/L 2 3.0-27.0 Normal (applies to non-numeric results) [facility]) Laboratory test finding (navigational concept) 24 mg/dL 8 -26 Normal (applies to non-numeric results) [facility] ([facility]) Laboratory test finding (navigational concept) 1.3 mg/dL 0 .6-1.3 Normal (applies to non-numeric results) [facility]) ID Date Data Source [id number] 01/19/2021 10:46:00 PM EDT [facility] ([facility]) Name Value Range Interpretation Code Description Data [facility] rce(s) Supporting Document(s) Blood Culture Laboratory test result [facility]) No growth after 72 hours . All specimens observed for 5 days. Results final at that time. No growth after 48 hours . All specimens observed for 5 days. Results final at that time. No growth after 24 hours . All specimens observed for 5 days. Results final at that time. NO GROWTH AFTER 5 DAYS ID Date Data Source [id number] 01/19/2021 10:46:00 PM EDT [facility]) Name Value Range Interpretation Code Description Data Francine rce(s) Supporting Document(s) C reactive protein [Mass/volume] in Serum or Plasma by High sensitivity method 1.12 mg/dL 0.00-0.30 Above high normal [facility] ([facility]) Lactate [Mass/volume] in Serum or Plasma 0.8 mmol/L 0.4-2.0 Normal (applies to non-numeric results) [facility] ([facility]) Y/N query for Sepsis Lactate Rule: Y ID Date Data Source [id number] 01/19/2021 10:46:00 PM EDT [facility] ([facility]) Name Value Range Interpretation Code Description Data Francine rce(s) Supporting Document(s) Ast/Sgot 13 U/L 7-37 Normal (applies to non-numeric resul ts) [facility]) Alt/SGPT 25 U/L 12-78 Normal (applies to non-numeric resul ts) [facility] ([facility]) Alkaline Phosphatase 79 U/L 45-117 Normal (applies to non-num be results) [facility] ([facility]) Bilirubin,Total 0.2 mg/dL 0.2-1.0 Normal (applies to non-numeric results) [facility] ([facility]) Bilirubin,Direct Laboratory test result 0.0-0.2 Normal ( applies to non-numeric results) [facility] ([facility]) Total Protein 7.2 GM/DL 6.4-8.2 Normal (applies to non-numeric re sults) [facility]) Albumin 3.7 GM/DL 3.2-5.2 Normal (applies to non-numeric resul ts) [facility] ([facility]) Albumin/Globulin Ratio 1.1 Normal (applies to non-n umeric results) [facility] ([facility]) ID Date Data Source [id number] 01/19/2021 10:46:00 PM EDT [facility] ([facility]) Name Value Range Interpretation Code Description Data Francine rce(s) Supporting Document(s) Erythrocyte sedimentation rate by Westergren method 22 mm/hr 0-20 Above high normal [facility] ([facility]) ID Date Data Source [id number] 01/19/2021 10:46:00 PM EDT [facility] ([facility]) Name Value Range Interpretation Code Description Data Francine rce(s) Supporting Document(s) White Blood Count 11.2 10 4.0-10.0 Above high normal [facility] ([facility]) Red Blood Count 4.42 10 4.30-6.10 Normal (applies to non-numeric results) [facility] ([facility]) Hemoglobin 13.7 g/dL 13.5-17.5 Normal (applies to non-numeric resul ts) [facility] ([facility]) Hematocrit 41.5 % 42.0-52.0 Below low normal [facility] ( [facility]) Mean Corpuscular Volume 93.9 fl 80.0-96.0 Normal ( applies to non-numeric results) [facility] ([facility]) Mean Corpuscular Hemoglobin 31.0 pg 27.0-33.0 Norm al (applies to non-numeric results) [facility] ([facility]) Mean Corpuscular HGB Conc 33.0 g/dL 32.0-36.5 Normal (applies to non-numeric results) [facility] ([facility]) Red Cell Distribution Width 12.3 % 11.5-14.5 Norm al (applies to non-numeric results) [facility] ([facility]) Platelet Count, Automated 206 10 150-450 Normal (applies to non-numeric results) [facility] ([facility]) Neutrophils % 69.1 % 36.0-66.0 Above high normal [facility] ([facility]) Lymph % 21.6 % 24.0-44.0 Below low normal [facility] ( [facility]) [place] % 7.2 % 2.0-8.0 Normal (applies to non-numeric resul ts) [facility] ([facility]) Eos % 1.4 % 0.0-3.0 Normal (applies to non-numeric resul ts) [facility] ([facility]) Baso % 0.2 % 0.0-1.0 Normal (applies to non-numeric resul ts) [facility] ([facility]) Immature Granulocyte % 0.5 % 0-3.0 Normal (applies to non-n umeric results) [facility] ([facility]) Nucleated Red Blood Cell % 0.0 % 0-0 Normal (applies to n on-numeric results) [facility] ([facility]) Neutrophils # 7.7 10 1.5-8.5 Normal (applies to non-numeric re sults) [facility] ([facility]) Lymph # 2.4 10 1.5-5.0 Normal (applies to non-numeric resul ts) [facility] ([facility]) [place] # 0.8 10 0.0-0.8 Normal (applies to non-numeric resul ts) [facility] ([facility]) Eos # 0.2 10 0.0-0.5 Normal (applies to non-numeric resul ts) [facility] ([facility]) Baso # 0.0 10 0.0-0.2 Normal (applies to non-numeric resul ts) [facility] ([facility]) ID Date Data Source [id number] 07/15/2020 08:01:00 AM EDT [facility] ([facility]) Name Value Range Interpretation Code Description Data Francine rce(s) Supporting Document(s) Rheumatoid factor [Units/volume] in Serum or Plasma Laboratory test result [facility] ([facility]) ID Date Data Source [id number] 07/15/2020 08:01:00 AM EDT [facility] ([facility]) Name Value Range Interpretation Code Description Data Francine rce(s) Supporting Document(s) Thyrotropin [Units/volume] in Serum or Plasma Laboratory test result [facility] ([facility]) Hemoglobin A1c/Hemoglobin.total in Blood Laboratory test result [facility] ([facility]) ID Date Data Source [id number] 07/15/2020 06:15:00 PM EDT [facility] Name Value Range Interpretation Code Description Data Francine rce(s) Supporting Document(s) Thyrotropin [Units/volume] in Serum or Plasma by Detec tion limit <= 0.05 mIU/L 1.22 uIU/mL 0.47 - 5.01 [facility] ID Date Data Source [id number] 07/15/2020 05:53:00 PM EDT [facility] Name Value Range Interpretation Code Description Data Francine rce(s) Supporting Document(s) RA QUANT <10 IU/mL 0 - 14 [facility] ID Date Data Source [id number] 07/15/2020 05:53:00 PM EDT [facility] Value Range Interpretation Code Description Data Francine rce(s) Supporting Document(s) CVE PANEL [facility] al LIPID PANEL Cholesterol [Mass/volume] in Serum or Plasma 182 MG/DL 131 - 200 [facility] Deprecated Triglyceride [Mass/volume] in Serum or Plasma 328 MG/DL 3 5 - 160 H [facility] HDL 43 MG/DL 29 - 86 [facility] Cholesterol in LDL [Mass/volume] in Serum or Plasma by Direc t assay 94 mg/dL 65 - 175 [facility] Cholesterol.total/Cholesterol in HDL [Mass Ratio] in Serum o r Plasma 4.2 3.4 - 4.9 [facility] LDL/HDL 2.19 1.00 - 3.55 [facility] ital CVE RISK CHOL/HDL LDL/HDLMEN: 1/2 AVERAGE 3.43 1.00 AVERAGE 4.97 3.55 2X AVERAGE 9.55 6.25 3X AVERAGE 23.99 7.99WOMEN: 1/2 AVERAGE 3.27 1.47 AVERAGE 4.44 3.22 2X AVERAGE 7.05 5.03 3X AVERAGE 11.04 6.14 ID Date Data Source [id number] 07/15/2020 05:53:00 PM EDT [facility] Name Value Range Interpretation Code Description Data Francine rce(s) Supporting Document(s) COMPREHENSIVE METABOLIC PANEL [facility] COMPREHENSIVE METABOLIC PANEL Sodium [Moles/volume] in Serum or Plasma 140 mEq/L 134 - 153 [facility] Potassium [Moles/volume] in Serum or Plasma 4.5 mEq/L 3.6 - 5.0 [facility] Chloride [Moles/volume] in Serum or Plasma 104 mEq/L 98 - 107 [facility] Carbon dioxide, total [Moles/volume] in Serum or Plasma 28 MEQ/L 22 - 30 [facility] Glucose [Mass/volume] in Serum or Plasma 98 MG/DL 65 - 110 [facility] BUN 12 MG/DL 7 - 21 [facility] Creatinine [Mass/volume] in Serum or Plasma 1.1 MG/DL 0.7 - 1.5 [facility] BUN/CREAT 11 8 - 27 [facility] al Protein [Mass/volume] in Serum or Plasma 6.9 G/DL 6.3 - 8.2 [facility] Albumin [Mass/volume] in Serum or Plasma 4.3 G/DL 3.9 - 5.0 [facility] Globulin [Mass/volume] in Serum by calculation 2.6 GM/DL 2.4 - 3.2 [facility] A/G RATIO 1.7 0.8 - 2.0 [facility] Calcium [Mass/volume] in Serum or Plasma 8.9 MG/DL 8.4 - 10.2 [facility] Bilirubin.total [Mass/volume] in Serum or Plasma <0.7 MG/DL 0.2 - 1.3 [facility] Alkaline phosphatase [Enzymatic activity/volume] in Serum or Plasma 62 U/L 38 - 126 [facility] Aspartate aminotransferase [Enzymatic activity/volume] in Serum or Plasma 16 U/L 5 - 40 [facility] Alanine aminotransferase [Enzymatic activity/volume] in Seru m or Plasma 16 U/L 7 - 56 [facility] Anion gap 3 in Serum or Plasma 8.0 mmol/L 8.0 - 16.0 [facility]GE 59 [facility] GFR >60 mL/min [facility] AFR AMER GFR >60 mL/min [facility] Male GFR In terprentation 20-49 [...] >32 mL/min Normal ID Date Data Source [id number] 07/15/2020 05:27:00 PM EDT [facility] Name Value Range Interpretation Code Description Data Francine rce(s) Supporting Document(s) Hemoglobin A1c/Hemoglobin.total in Blood 5.4 % 4.4 - 6.1 [facility] {A1]{HB] ID Date Data Source [id number] 07/15/2020 05:02:00 PM EDT [facility] Name Value Range Interpretation Code Description Data Francine rce(s) Supporting Document(s) CBC W/AUTOMATED DIFF [facility] COMPLETE BLOOD COUNT Leukocytes [#/volume] in Blood by Automated count 5.1 10^3/uL 4.2 - 1 1.0 [facility] Erythrocytes [#/volume] in Blood by Automated count 4.67 10^6/uL 4. 50 - 6.30 [facility] Hemoglobin [Mass/volume] in Blood 14.6 g/dL 14.0 - 16.0 [facility] Hematocrit [Volume Fraction] of Blood by Automated count 43.8 % 4 1.0 - 51.0 [facility] Erythrocyte mean corpuscular volume [Entitic volume] by Auto mated count 93.8 fL 80.0 - 94.0 [facility] Erythrocyte mean corpuscular hemoglobin [Entitic mass] by Automated count 31.3 pg 27.0 - 34.0 [facility] Erythrocyte mean corpuscular hemoglobin concentration [Mass/volume] by Automated count 33.3 g/dL 31.0 - 36.0 [facility] Erythrocyte distribution width [Ratio] by Automated count 13.2 % 11.5 - 14.8 [facility] Platelets [#/volume] in Blood by Automated count 176 10^3/uL 150 - 45 0 [facility] Platelet mean volume [Entitic volume] in Blood by Automated count 9.8 fL 7.4 - 10.4 [facility] Neutrophils/100 leukocytes in Blood by Automated count 50.0 % 37. 0 - 80.0 [facility] Lymphocytes/100 leukocytes in Blood by Manual count 36.6 % 25.0 - 40.0 [facility] Monocytes/100 leukocytes in Blood by Automated count 9.3 % 3.0 - 8.0 H [facility] Eosinophils/100 leukocytes in Blood by Automated count 3.3 % 0.0 - 7.0 [facility] Basophils/100 leukocytes in Blood by Automated count 0.6 % 0.0 - 2.0 [facility] %IG 0.2 % 0.0 - 0.0 H [facility] %NRBC 0.0 % 0.0 - 0.0 [facility] al Neutrophils [#/volume] in Blood by Automated count 2.57 10^3/uL 2.00 - 6.90 [facility] Lymphocytes [#/volume] in Blood by Automated count 1.88 10^3/uL 0.60 - 3.40 [facility] Monocytes [#/volume] in Blood by Automated count 0.48 10^3/uL 0.00 - 0.90 [facility] Eosinophils [#/volume] in Blood by Automated count 0.17 10^3/uL 0.00 - 0.70 [facility] Basophils [#/volume] in Blood by Automated count 0.03 10^3/uL 0.00 - 0.20 [facility] #IG 0.01 10^3/uL 0.00 - 0.10 [facility] #NRBC 0.00 10^3/uL 0.00 - 0.00 [facility] MANUAL DIFF NOT INDICATED [facility] RBC MORPH NOT INDICATED [facility] Procedure Social History No Information Vital Signs ID Date Data Source UNK Name Value Range Interpretation Code Description Data Source(s) Systolic blood pressure 130 mm[Hg] 130 mm[Hg] M [facility] ([facility]) Diastolic blood pressure 70 mm[Hg] 70 mm[Hg] [facility] ([facility]) Heart rate 58 /min 58 /min [facility] ([facility]) Body temperature 98.5 [degF] 98.5 [degF] [facility] ([facility]) Respiratory rate 18 /min 18 /min [facility] ( [facility]) Oxygen saturation in Arterial blood by Pulse oximetry 96 % 96 % [facility] ([facility]) Body weight 197.50 [lb_av] 197.50 [lb_av] [facility] ([facility]) Body weight 89.586 kg 89.586 kg [facility] ([facility]) Body height 69 [in_i] 69 [in_i] [facility] ([facility]) 5'9" Body mass index (BMI) [Ratio] 29.2 kg/m2 29.2 k g/m2 [facility] ([facility]) Body surface area Derived from formula 2.05 m2 2.05 m2 [facility] ([facility])
[2021-08-09 13:03] LABS: ERYTHROCYTE SEDIMENTATION RATE 5 mm/hr (0-20)
[2021-08-09 13:08] LABS: C REACTIVE PROTEIN QUANTITATIV 7.28 MG/DL (0.00-0.30); URIC ACID 7.3 MG/DL (3.5-7.2)
[2021-08-09] MEDS ORDERED: cefTRIAXone SOD 1 GM in D5W MINI-BAG PLUS 50 ML IV ONE (13:15)
[2021-08-09] MEDS ORDERED: HYDR-3713 PO (13:53)
[2021-08-09] MEDS ORDERED: CEPH500C PO (13:53)
[2021-08-09 14:08] VITALS: BP 136/73
[2021-08-09] MEDS ORDERED: CRUTMIS25 XX (14:33)
== END 2021-08-09 14:47 | disposition home or self-care (01) ==
LOC: M ED 10:27
DX: L03.116 Cellulitis of left lower limb (principal); E11.9 Type 2 diabetes mellitus without complications; E78.5 Hyperlipidemia, unspecified; F17.200 Nicotine dependence, unspecified, uncomplicated
CPT/HCPCS: 36415; 73600; 80047; 83605; 84550; 85025; 85652; 86140; 96365; 99284; J0696

== ENCOUNTER 2021-11-23 15:20 | Emergency (ER) | payer MEDICARE ==
[~2021-11-23] VITALS: Ht 175.3 cm; Wt 87.7 kg
[~2021-11-23 15:20] MED LIST changes: +CRUTMIS25 XX; +HYDR-3713 PO; +LOSA25TA13 PO; -LOSA25TA14 PO
[2021-11-23 19:08] LABS: BASO % 0.3 % (0.0-1.0); EOS # 0.1 10^3/uL (0.0-0.5); EOS % 0.9 % (0.0-3.0); HEMATOCRIT 42.9 % (42.0-52.0); LYMPH # 2.2 10^3/uL (1.5-5.0); LYMPH % 20.6 % (24.0-44.0); MEAN CORPUSCULAR HEMOGLOBIN 29.9 pg (27.0-33.0); MEAN CORPUSCULAR HGB CONC 32.6 g/dl (32.0-36.5); MEAN CORPUSCULAR VOLUME 91.5 fl (80.0-96.0); MONO # 0.9 10^3/uL (0.0-0.8); MONO % 8.6 % (2.0-8.0); NEUTROPHILS # 7.3 10^3/uL (1.5-8.5); NEUTROPHILS % 69.4 % (36.0-66.0); PLATELET COUNT, AUTOMATED 180 10^3/uL (150-450); RED BLOOD COUNT 4.69 10^6/uL (4.30-6.10); WHITE BLOOD COUNT 10.5 10^3/uL (4.0-10.0)
[2021-11-23 19:29] LABS: ERYTHROCYTE SEDIMENTATION RATE 29 mm/hr (0-20)
[2021-11-23 19:33] LABS: BLOOD UREA NITROGEN 12 MG/DL (7-18); CALCIUM LEVEL 8.8 MG/DL (8.8-10.2); CARBON DIOXIDE LEVEL 29 MEQ/L (21-32); CHLORIDE LEVEL 105 MEQ/L (98-107); CREATININE FOR GFR 1.06 MG/DL (0.70-1.30); GLOMERULAR FILTRATION RATE > 60.0 (>49); GLUCOSE, FASTING 85 MG/DL (70-100); POTASSIUM SERUM 4.2 MEQ/L (3.5-5.1); SODIUM LEVEL 137 MEQ/L (136-145); URIC ACID 6.6 MG/DL (3.5-7.2)
[2021-11-23] MEDS ORDERED: CEPH500C PO (20:04)
[2021-11-23] MEDS ORDERED: CEPHALEXIN 500 MG CAP PO ONE (20:10)
[2021-11-23 20:11] VITALS: BP 153/59
== END 2021-11-23 20:36 | disposition home or self-care (01) ==
LOC: M ED 15:20
DX: L03.115 Cellulitis of right lower limb (principal); I80.01 Phlebitis and thrombophlebitis of superficial vessels of right lower extremity; E11.9 Type 2 diabetes mellitus without complications; I10 Essential (primary) hypertension; H81.4 Vertigo of central origin; F17.200 Nicotine dependence, unspecified, uncomplicated; Z79.899 Other long term (current) drug therapy

== ENCOUNTER → 2021-12-06 | Outpatient (CLI) | payer MEDICARE ==
[2021-12-06 13:41] LABS: BASO % 0.3 % (0.0-1.0); EOS # 0.1 10^3/uL (0.0-0.5); EOS % 1.7 % (0.0-3.0); HEMATOCRIT 45.8 % (42.0-52.0); HEMOGLOBIN 14.7 g/dl (13.5-17.5); LYMPH # 2.1 10^3/uL (1.5-5.0); LYMPH % 28.9 % (24.0-44.0); MEAN CORPUSCULAR HEMOGLOBIN 29.5 pg (27.0-33.0); MEAN CORPUSCULAR HGB CONC 32.1 g/dl (32.0-36.5); MONO # 0.4 10^3/uL (0.0-0.8); MONO % 5.9 % (2.0-8.0); NEUTROPHILS # 4.5 10^3/uL (1.5-8.5); NEUTROPHILS % 63.1 % (36.0-66.0); PLATELET COUNT, AUTOMATED 220 10^3/uL (150-450); RED BLOOD COUNT 4.98 10^6/uL (4.30-6.10); WHITE BLOOD COUNT 7.1 10^3/uL (4.0-10.0)
[2021-12-06 13:56] LABS: HEMOGLOBIN A1c 5.7 %
[2021-12-06 14:10] LABS: ALBUMIN 4.1 GM/DL (3.2-5.2); ALT/SGPT 21 U/L (12-78); BILIRUBIN,TOTAL 0.3 MG/DL (0.2-1.0); BLOOD UREA NITROGEN 14 MG/DL (7-18); CALCIUM LEVEL 9.2 MG/DL (8.8-10.2); CARBON DIOXIDE LEVEL 29 MEQ/L (21-32); CHLORIDE LEVEL 105 MEQ/L (98-107); CHOLESTEROL LEVEL 214 MG/DL (<200); CREATININE FOR GFR 1.04 MG/DL (0.70-1.30); GLOMERULAR FILTRATION RATE > 60.0 (>49); GLUCOSE, FASTING 93 MG/DL (70-100); HDL CHOLESTEROL 40 MG/DL (>40); LDL CHOLESTEROL 142 MG/DL (<100); NON-HDL-C 174 MG/DL; POTASSIUM SERUM 4.3 MEQ/L (3.5-5.1); SODIUM LEVEL 139 MEQ/L (136-145); TOTAL PROTEIN 7.4 GM/DL (6.4-8.2); TRIGLYCERIDES LEVEL 160 MG/DL (<150); URIC ACID 6.7 MG/DL (3.5-7.2)
== END ==
LOC: M PLALAB 09:50
PROVIDERS: ATTEND Nurse Practitioner Family
DX: E78.5 Hyperlipidemia, unspecified (principal); M10.00 Idiopathic gout, unspecified site; R73.01 Impaired fasting glucose; Z12.5 Encounter for screening for malignant neoplasm of prostate
CPT/HCPCS: 36415; 80053; 80061; 83036; 84550; 85025; G0103

== ENCOUNTER 2023-10-18 08:02 | Emergency (ER) | payer MEDICARE ==
[~2023-10-18] VITALS: Ht 175.3 cm; Wt 100.1 kg
[2023-10-18] MEDS ORDERED: IBUP200T46 PO (08:13)
[2023-10-18 11:30] VITALS: BP 148/100; TEMP 97.4; O2SAT 98
== END 2023-10-18 11:33 | disposition home or self-care (01) ==
LOC: M ED 08:02
DX: S60.911A Unspecified superficial injury of right wrist, initial encounter (principal); W10.8XXA Fall (on) (from) other stairs and steps, initial encounter; I10 Essential (primary) hypertension; E11.9 Type 2 diabetes mellitus without complications; Y92.009 Unspecified place in unspecified non-institutional (private) residence as the place of occurrence of the external cause; Y93.89 Activity, other specified; Y99.9 Unspecified external cause status; Z96.642 Presence of left artificial hip joint; Z79.1 Long term (current) use of non-steroidal anti-inflammatories (NSAID)

== ENCOUNTER 2023-10-20 08:14 | Emergency (ER) | payer MEDICARE ==
[~2023-10-20] VITALS: Ht 175.3 cm; Wt 99.1 kg
[~2023-10-20 08:14] MED LIST changes: +IBUP200T46 PO
[2023-10-20] MEDS ORDERED: ACET-683 PO (08:31)
[2023-10-20] MEDS ORDERED: ANEC4CRE3 TOP (11:14)
[2023-10-20] MEDS ORDERED: TRAM50TA2 PO (11:14)
[2023-10-20 11:33] VITALS: BP 162/80; TEMP 97.6; O2SAT 97
== END 2023-10-20 11:37 | disposition home or self-care (01) ==
LOC: M ED 08:14
DX: S60.911A Unspecified superficial injury of right wrist, initial encounter (principal); R22.31 Localized swelling, mass and lump, right upper limb; W10.8XXA Fall (on) (from) other stairs and steps, initial encounter; E11.9 Type 2 diabetes mellitus without complications; I10 Essential (primary) hypertension; E78.5 Hyperlipidemia, unspecified; Z96.642 Presence of left artificial hip joint; Y92.009 Unspecified place in unspecified non-institutional (private) residence as the place of occurrence of the external cause; Y93.89 Activity, other specified; Y99.9 Unspecified external cause status; Z79.899 Other long term (current) drug therapy

== ENCOUNTER 2024-03-06 08:10 | Emergency (ER) | payer MEDICARE ==
[~2024-03-06] VITALS: Ht 175.3 cm; Wt 101.1 kg
[~2024-03-06 08:10] MED LIST changes: +ACET-683 PO; +ANEC4CRE3 TOP; +TRAM50TA2 PO
[2024-03-06] MEDS ORDERED: NAPR-837 PO (10:56)
[2024-03-06] MEDS ORDERED: AMOX875T2 PO (10:56)
[2024-03-06 11:06] VITALS: TEMP 97; O2SAT 98
[2024-03-06 11:24] VITALS: BP 165/84
== END 2024-03-06 11:28 | disposition home or self-care (01) ==
LOC: M ED 08:10
DX: M70.21 Olecranon bursitis, right elbow (principal); H61.21 Impacted cerumen, right ear; I10 Essential (primary) hypertension; F17.200 Nicotine dependence, unspecified, uncomplicated; Z96.642 Presence of left artificial hip joint; Z79.1 Long term (current) use of non-steroidal anti-inflammatories (NSAID); Z79.2 Long term (current) use of antibiotics

== ENCOUNTER → 2024-08-21 | Outpatient (REF) | payer MEDICARE ==
[~2024-08-21] MED LIST changes: +AMOX875T2 PO; +NAPR-837 PO
[2024-08-21 12:15] LABS: APPEARANCE, URINE CLEAR (CLEAR); BACTERIA, URINE AUTO NEGATIVE (NEGATIVE); BILIRUBIN, URINE AUTO NEGATIVE (NEGATIVE); BLOOD, URINE BLOOD NEGATIVE (NEGATIVE); COLOR, URINE STRAW (YELLOW); GLUCOSE, URINE (UA) AUTO NEGATIVE (NEGATIVE); KETONE, URINE AUTO NEGATIVE (NEGATIVE); LEUKOCYTE ESTERASE, URINE AUTO NEGATIVE (NEGATIVE); NITRITE, URINE AUTO NEGATIVE (NEGATIVE); PROTEIN, URINE AUTO NEGATIVE (NEGATIVE); RBC, URINE AUTO 0 /HPF (0-3); SPECIFIC GRAVITY URINE AUTO 1.004 (1.002-1.035); SQUAMOUS EPITHELIAL CELL UR AU 0 /HPF (0-6); UROBILINOGEN, URINE AUTO 0.2 mg/dL (0.0-2.0); WBC, URINE AUTO 0 /HPF (0-3)
[2024-08-21 12:38] LABS: CREATININE, URINE 27.2 MG/DL
[2024-08-21 12:39] LABS: MALB URINE SIEMENS < 3.0 MG/L
[2024-08-21 13:15] LABS: Trichomonas vaginalis (AMP) NOT DETECTED (NEGATIVE)
[2024-08-21 13:39] LABS: GC DNA AMPLIFICATION NEGATIVE (NEGATIVE)
== END ==
LOC: M LAB REF 11:40
PROVIDERS: ATTEND Physician Assistant
DX: R03.0 Elevated blood-pressure reading, without diagnosis of hypertension (principal); Z79.899 Other long term (current) drug therapy; Z11.3 Encounter for screening for infections with a predominantly sexual mode of transmission; Z72.89 Other problems related to lifestyle

== ENCOUNTER → 2024-08-22 | Outpatient (REF) | payer MEDICARE ==
[2024-08-22 13:42] LABS: ALBUMIN 3.7 G/DL (3.2-5.2); ALKALINE PHOSPHATASE 81 U/L (40-129); ALT/SGPT 24 U/L (7.0-40); AST/SGOT 14 U/L (<34); BILIRUBIN,TOTAL 0.4 MG/DL (0.3-1.2); BLOOD UREA NITROGEN 14 MG/DL (9-23); CALCIUM LEVEL 9.6 MG/DL (8.3-10.6); CARBON DIOXIDE LEVEL 29 MMOL/L (20-31); CHLORIDE LEVEL 106 MMOL/L (98-107); CHOLESTEROL LEVEL 195 MG/DL (<200); CHOLESTEROL RISK RATIO 5.21 (<5); CREATININE FOR GFR 0.94 MG/DL (0.70-1.30); GLOMERULAR FILTRATION RATE > 60.0 (>49); GLUCOSE, FASTING 85 MG/DL (74-106); HDL CHOLESTEROL 37.4 MG/DL (>40); LDL CHOLESTEROL 103.4 MG/DL (<100); NON-HDL-C 157.6 MG/DL; POTASSIUM SERUM 4.7 MMOL/L (3.5-5.1); PROSTATIC SPECIFIC AG MONITOR 0.89 NG/ML (< 4.00); SODIUM LEVEL 138 MMOL/L (136-145); TOTAL PROTEIN 7.3 G/DL (5.7-8.2); TRIGLYCERIDES LEVEL 271 MG/DL (<150)
[2024-08-22 13:46] LABS: THYROID STIMULATING HORMONE 0.704 uIU/ML (0.55-4.78); TOTAL 25(OH) VITAMIN D 35.4 NG/ML (20.0-100.0)
[2024-08-22 14:00] LABS: HEMOGLOBIN A1c 5.9 % (4.0-6.0)
== END ==
LOC: M LAB REF 12:54
PROVIDERS: ATTEND Physician Assistant
DX: E66.9 Obesity, unspecified (principal); E55.9 Vitamin D deficiency, unspecified; Z12.5 Encounter for screening for malignant neoplasm of prostate; Z79.899 Other long term (current) drug therapy; Z11.3 Encounter for screening for infections with a predominantly sexual mode of transmission; Z72.89 Other problems related to lifestyle

== ENCOUNTER 2024-08-26 06:59 | Emergency (ER) | payer MEDICARE ==
[~2024-08-26] VITALS: Ht 175.3 cm; Wt 103.6 kg
[2024-08-26] MEDS: ACETAMINOPHEN 500 MG TAB PO ONE (08:15)
[2024-08-26] MEDS ORDERED: NAPR-837 PO (08:57)
[2024-08-26 09:13] VITALS: BP 167/93; TEMP 98.3; O2SAT 96
== END 2024-08-26 09:16 | disposition home or self-care (01) ==
LOC: M ED 06:59
DX: M25.532 Pain in left wrist (principal); W19.XXXA Unspecified fall, initial encounter; I10 Essential (primary) hypertension; E11.9 Type 2 diabetes mellitus without complications; Z79.4 Long term (current) use of insulin; Y92.9 Unspecified place or not applicable; Y93.89 Activity, other specified; Y99.9 Unspecified external cause status; Z79.1 Long term (current) use of non-steroidal anti-inflammatories (NSAID)

== ENCOUNTER 2024-09-08 11:21 | Emergency (ER) | payer MEDICARE ==
[~2024-09-08] VITALS: Ht 175.3 cm; Wt 91.4 kg
[2024-09-08 11:26] VITALS: BP 183/84; TEMP 97.9; O2SAT 97
[2024-09-09] MEDS ORDERED: LISI10TA22 PO (10:59)
[2024-09-09] MEDS ORDERED: INDO50CA91 PO (10:59)
[2024-09-09] MEDS ORDERED: CEPH500C PO (10:59)
== END 2024-09-08 14:03 | disposition left against medical advice (07) ==
LOC: M ED 11:21
DX: Z53.21 Procedure and treatment not carried out due to patient leaving prior to being seen by health care provider (principal)

== ENCOUNTER 2024-09-09 08:03 | Emergency (ER) | payer MEDICARE, OTHER ==
[~2024-09-09] VITALS: Ht 175.3 cm; Wt 102.2 kg
[2024-09-09 09:41] LABS: BASO % 0.2 % (0.0-1.0); EOS # 0.1 10^3/uL (0.0-0.5); EOS % 1.5 % (0.0-3.0); HEMATOCRIT 41.7 % (42.0-52.0); HEMOGLOBIN 13.9 g/dl (13.5-17.5); LYMPH # 2.1 10^3/uL (1.5-5.0); MEAN CORPUSCULAR HEMOGLOBIN 30.2 pg (27.0-33.0); MEAN CORPUSCULAR HGB CONC 33.3 g/dl (32.0-36.5); MEAN CORPUSCULAR VOLUME 90.7 fl (80.0-96.0); MONO # 0.7 10^3/uL (0.0-0.8); MONO % 7.4 % (2.0-8.0); NEUTROPHILS # 6.5 10^3/uL (1.5-8.5); NEUTROPHILS % 68.7 % (36.0-66.0); PLATELET COUNT, AUTOMATED 213 10^3/uL (150-450); WHITE BLOOD COUNT 9.4 10^3/uL (4.0-10.0)
[2024-09-09 10:03] LABS: BLOOD UREA NITROGEN 18 MG/DL (9-23); CALCIUM LEVEL 9.1 MG/DL (8.3-10.6); CARBON DIOXIDE LEVEL 26 MMOL/L (20-31); CHLORIDE LEVEL 108 MMOL/L (98-107); CREATININE FOR GFR 1.07 MG/DL (0.70-1.30); GLOMERULAR FILTRATION RATE > 60.0 (>49); GLUCOSE, FASTING 98 MG/DL (74-106); POTASSIUM SERUM 4.5 MMOL/L (3.5-5.1); SODIUM LEVEL 139 MMOL/L (136-145)
[2024-09-09] MEDS ORDERED: LISI10TA22 PO (10:59)
[2024-09-09] MEDS ORDERED: INDO50CA91 PO (10:59)
[2024-09-09] MEDS ORDERED: CEPH500C PO (10:59)
[2024-09-09 11:22] VITALS: BP 190/81
[2024-09-09 11:26] VITALS: BP 190/81; TEMP 97.4; O2SAT 95
== END 2024-09-09 11:27 | disposition home or self-care (01) ==
LOC: M ED 08:03
DX: L03.116 Cellulitis of left lower limb (principal); M19.072 Primary osteoarthritis, left ankle and foot; I10 Essential (primary) hypertension; F17.200 Nicotine dependence, unspecified, uncomplicated; Z79.2 Long term (current) use of antibiotics; Z79.811 Long term (current) use of aromatase inhibitors; Z79.899 Other long term (current) drug therapy; Z96.642 Presence of left artificial hip joint

== ENCOUNTER → 2025-02-26 | Outpatient (REF) | payer MEDICARE ==
[~2025-02-26] MED LIST changes: +LISI10TA22 PO
[2025-02-26 12:15] LABS: APPEARANCE, URINE CLEAR (CLEAR); BACTERIA, URINE AUTO NEGATIVE (NEGATIVE); BILIRUBIN, URINE AUTO NEGATIVE (NEGATIVE); BLOOD, URINE BLOOD NEGATIVE (NEGATIVE); COLOR, URINE STRAW (YELLOW); GLUCOSE, URINE (UA) AUTO NEGATIVE (NEGATIVE); KETONE, URINE AUTO NEGATIVE (NEGATIVE); LEUKOCYTE ESTERASE, URINE AUTO NEGATIVE (NEGATIVE); NITRITE, URINE AUTO NEGATIVE (NEGATIVE); PROTEIN, URINE AUTO NEGATIVE (NEGATIVE); RBC, URINE AUTO 0 /HPF (0-3); SPECIFIC GRAVITY URINE AUTO 1.004 (1.002-1.035); SQUAMOUS EPITHELIAL CELL UR AU 0 /HPF (0-6); UROBILINOGEN, URINE AUTO 0.2 mg/dL (0.0-2.0); WBC, URINE AUTO 0 /HPF (0-3)
[2025-02-26 12:50] LABS: BASO % 0.2 % (0.0-1.0); EOS # 0.1 10^3/uL (0.0-0.5); EOS % 1.1 % (0.0-3.0); HEMATOCRIT 45.4 % (42.0-52.0); HEMOGLOBIN 15.3 g/dl (13.5-17.5); LYMPH # 2.1 10^3/uL (1.5-5.0); LYMPH % 21.5 % (24.0-44.0); MEAN CORPUSCULAR HEMOGLOBIN 30.5 pg (27.0-33.0); MEAN CORPUSCULAR HGB CONC 33.7 g/dl (32.0-36.5); MEAN CORPUSCULAR VOLUME 90.6 fl (80.0-96.0); MONO # 0.8 10^3/uL (0.0-0.8); MONO % 7.5 % (2.0-8.0); NEUTROPHILS # 6.9 10^3/uL (1.5-8.5); NEUTROPHILS % 69.3 % (36.0-66.0); PLATELET COUNT, AUTOMATED 203 10^3/uL (150-450); RED BLOOD COUNT 5.01 10^6/uL (4.30-6.10)
[2025-02-26 12:57] LABS: ERYTHROCYTE SEDIMENTATION RATE 40 mm/hr (0-20)
[2025-02-26 13:03] LABS: ALBUMIN 3.8 G/DL (3.2-5.2); BILIRUBIN,TOTAL 0.6 MG/DL (0.3-1.2); C REACTIVE PROTEIN QUANTITATIV 3.09 MG/DL (<1.0); CALCIUM LEVEL 8.8 MG/DL (8.3-10.6); CHOLESTEROL RISK RATIO 5.33 (<5); CREATININE FOR GFR 1.06 MG/DL (0.70-1.30); GLOMERULAR FILTRATION RATE 78.9 (>49); HDL CHOLESTEROL 37.5 MG/DL (>40); LDL CHOLESTEROL 146.7 MG/DL (<100); MAGNESIUM LEVEL 2.2 MG/DL (1.8-2.4); NON-HDL-C 162.5 MG/DL; POTASSIUM SERUM 4.4 MMOL/L (3.5-5.1); TOTAL PROTEIN 7.4 G/DL (5.7-8.2)
[2025-02-26 13:04] LABS: RHEUMATOID FACTOR QUANT 9.3 IU/ML (<14)
[2025-02-26 13:08] LABS: URIC ACID 8.1 MG/DL (3.7-9.2)
[2025-02-26 13:41] LABS: CREATININE, URINE 29.6 MG/DL; MALB URINE SIEMENS < 3.0 MG/L
[2025-02-27 14:38] LABS: SSA SJOGRENS A <1.0 NEG AI (<1.0 NEG); SSB SJOGRENS B <1.0 NEG AI (<1.0 NEG)
[2025-02-27 18:07] LABS: ANA SCREEN, IFA NEGATIVE (NEGATIVE)
== END ==
LOC: M LAB REF 11:42
PROVIDERS: ATTEND Physician Assistant
DX: I10 Essential (primary) hypertension (principal); M06.9 Rheumatoid arthritis, unspecified; E78.2 Mixed hyperlipidemia; M10.9 Gout, unspecified; R60.0 Localized edema; Z79.899 Other long term (current) drug therapy

== ENCOUNTER → 2025-05-13 | Outpatient (CLI) | payer MEDICARE | LOC: M RAD 07:25 | PROVIDERS: ATTEND Physician Assistant | DX: I87.2 Venous insufficiency (chronic) (peripheral) (principal); I70.203 Unspecified atherosclerosis of native arteries of extremities, bilateral legs ==

== ENCOUNTER 2025-08-31 05:51 | Emergency (ER) | payer MEDICARE ==
[~2025-08-31] VITALS: Ht 175.3 cm; Wt 87.2 kg
[2025-08-31] MEDS: NS (Normal Saline) 0.9% 1,000 ML IV ONE (07:24)
[2025-08-31] MEDS: ONDANSETRON 4MG/2ML VIAL IV ONE (07:40)
[2025-08-31 07:41] LABS: BASO # 0.0 10^3/uL (0.0-0.2); BASO % 0.4 % (0.0-1.0); EOS # 0.1 10^3/uL (0.0-0.5); EOS % 1.4 % (0.0-3.0); LYMPH # 2.3 10^3/uL (1.5-5.0); LYMPH % 24.7 % (24.0-44.0); MONO # 0.6 10^3/uL (0.0-0.8); MONO % 6.0 % (2.0-8.0); NEUTROPHILS # 6.3 10^3/uL (1.5-8.5); NEUTROPHILS % 67.3 % (36.0-66.0); PLATELET COUNT, AUTOMATED 205 10^3/uL (150-450)
[2025-08-31] MEDS: KETOROLAC 30 MG/ML 1 ML VIAL IV ONE (07:41)
[2025-08-31] MEDS ORDERED: ISOVUE-370 76% 100 ML VIAL As Ordered ONE (07:47)
[2025-08-31 08:02] LABS: ALT/SGPT 19.0 U/L (7.0-40); AST/SGOT 18.0 U/L (<34)
[2025-08-31 09:06] LABS: KETONE, URINE AUTO RFX NEGATIVE (NEGATIVE); LEUKOCYTE ESTERASE UR AUTO RFX NEGATIVE (NEGATIVE); NITRITE, URINE AUTO RFX NEGATIVE (NEGATIVE); RBC, URINE AUTO RFX 1 /HPF (0-3); SQUAM EPITHELIAL CELL UR AURFX 0 /HPF (0-6); WBC, URINE AUTO RFX 0 /HPF (0-3)
[2025-08-31 10:20] VITALS: BP 153/69; O2SAT 98
[2025-08-31] MEDS ORDERED: ONDA-282 PO (10:32)
[2025-08-31 10:34] VITALS: TEMP 97.3
== END 2025-08-31 10:44 | disposition home or self-care (01) ==
LOC: M ED 05:51
DX: R10.9 Unspecified abdominal pain (principal); R19.7 Diarrhea, unspecified; R11.2 Nausea with vomiting, unspecified; R79.89 Other specified abnormal findings of blood chemistry; K40.90 Unilateral inguinal hernia, without obstruction or gangrene, not specified as recurrent; E11.9 Type 2 diabetes mellitus without complications; K21.9 Gastro-esophageal reflux disease without esophagitis; E78.5 Hyperlipidemia, unspecified; I10 Essential (primary) hypertension; F17.200 Nicotine dependence, unspecified, uncomplicated; Z79.2 Long term (current) use of antibiotics; Z79.899 Other long term (current) drug therapy; Z96.642 Presence of left artificial hip joint
CPT/HCPCS: 74177; 80047; 80076; 81001; 83690; 85025; 87486; 87507; 87581; 87633; 87798; 93041; 96361; 96374; 96375; 99284; J1885; J2405; Q9967

== ENCOUNTER → 2025-10-02 | Outpatient (REF) | payer MEDICARE ==
[~2025-10-02] MED LIST changes: +ONDA-282 PO
[2025-10-02 12:33] LABS: APPEARANCE, URINE CLEAR (CLEAR); BACTERIA, URINE AUTO NEGATIVE (NEGATIVE); BILIRUBIN, URINE AUTO NEGATIVE (NEGATIVE); BLOOD, URINE BLOOD NEGATIVE (NEGATIVE); GLUCOSE, URINE (UA) AUTO NEGATIVE (NEGATIVE); KETONE, URINE AUTO NEGATIVE (NEGATIVE); LEUKOCYTE ESTERASE, URINE AUTO NEGATIVE (NEGATIVE); NITRITE, URINE AUTO NEGATIVE (NEGATIVE); PROTEIN, URINE AUTO NEGATIVE (NEGATIVE); RBC, URINE AUTO 0 /HPF (0-3); SPECIFIC GRAVITY URINE AUTO 1.004 (1.002-1.035); SQUAMOUS EPITHELIAL CELL UR AU 0 /HPF (0-6); UROBILINOGEN, URINE AUTO 0.2 mg/dL (0.0-2.0); WBC, URINE AUTO 0 /HPF (0-3)
[2025-10-02 13:03] LABS: CREATININE, URINE 21.3 MG/DL
[2025-10-02 13:04] LABS: MALB URINE SIEMENS < 3.0 MG/L
[2025-10-02 13:07] LABS: ESTIMATED AVERAGE GLUCOSE 117.0 MG/DL (60-110)
[2025-10-02 13:31] LABS: ALT/SGPT 20 U/L (7.0-40); AST/SGOT 18 U/L (<34); C REACTIVE PROTEIN QUANTITATIV < 0.50 MG/DL (<1.0); CALCIUM LEVEL 8.7 MG/DL (8.3-10.6); CARBON DIOXIDE LEVEL 27 MMOL/L (20-31); CHLORIDE LEVEL 110 MMOL/L (98-107); CHOLESTEROL LEVEL 190 MG/DL (<200); CHOLESTEROL RISK RATIO 5.35 (<5); CREATININE FOR GFR 1.03 MG/DL (0.70-1.30); GLOMERULAR FILTRATION RATE 81.6 (>49); LDL CHOLESTEROL 132.9 MG/DL (<100); NON-HDL-C 154.5 MG/DL; POTASSIUM SERUM 4.8 MMOL/L (3.5-5.1); SODIUM LEVEL 141 MMOL/L (136-145); TRIGLYCERIDES LEVEL 108 MG/DL (<150)
[2025-10-02 13:35] LABS: TOTAL 25(OH) VITAMIN D 24.9 NG/ML (20.0-100.0)
== END ==
LOC: M LAB REF 11:57
PROVIDERS: ATTEND Physician Assistant
DX: E78.2 Mixed hyperlipidemia (principal); R73.03 Prediabetes; E55.9 Vitamin D deficiency, unspecified; M10.9 Gout, unspecified; I10 Essential (primary) hypertension